=== PATIENT | male | born 1975 | race Caucasian/White ===

== ENCOUNTER 2016-12-19 02:52 | Emergency (ER) | payer MEDICAID ==
[2016-12-19] MEDS ORDERED: ASPIRIN 325 MG TABLET PO ONE (02:57)
--- NOTE | 2016-12-19 03:03 | Emergency Department Record ---
History of Present Illness - General Chief Complaint: Chest Pain Stated Complaint: CHEST PAIN Time Seen by Provider: 12/19/16 02:57 Source: Patient Mode of Arrival: Ambulatory Limitations: No limitations - History of Present Illness Initial Comments: 41 yo male presents with chest pain that is coming and going. It started yesterday morning around 9am. The pain comes and goes. It returned about 2 hours ago and did not stop. He has a history of recurrent chest pain in the past. He has had a treadmill stress test in August that was negative. He does not have any known history of CAD. He has a known RBBB for several years. The discomfort started tonight at rest. It is not with exertion. PCP is the [facility]. He has been evaluated by [facility] in the past. The patient reports he has had 3 other stress tests in the past. They have all been negative. The pain is a prickly needle like feeling in the mid lower chest. It does not radiate to the back. No shortness of breath. No sweating. No nausea. MD Complaint: Chest pain -: Days(s) (1) Pain Location: Substernal Pain Radiation: None Severity: Moderate Quality: Aching, Tightness Consistency: Intermittent Improves With: Nothing Worsens With: Nothing Treatments Prior to Arrival: None - Related Data Allergies Allergy/AdvReac Type Severity Reaction Status Date / Time diazepam [From Valium] Allergy Severe DIFFICULTY Unverified 10/31/16 10:34 BREATHING Review of Systems Constitutional: Denies: Chills, Fever, Malaise, Weakness Eyes: Denies: Eye discharge ENT: Denies: Congestion, Throat pain Respiratory: Denies: Cough, Dyspnea, Hemoptysis, Stridor, Wheezes Cardiovascular: Reports: Chest pain. Denies: Arrhythmia, Palpitations, Syncope Endocrine: Denies: Fatigue, Polydipsia, Polyuria Gastrointestinal: Reports: Abdominal pain (epigastric occasionally). Denies: Nausea, Vomiting Genitourinary: Denies: Dysuria, Frequency, Hematuria Musculoskeletal: Denies: Arthralgia, Back pain, Joint swelling Skin: Denies: Bruising, Change in color, Rash Neurological: Denies: Headache Psychiatric: Denies: Anxiety Hematological/Lymphatic: Denies: Blood Clots, Easy bleeding, Easy bruising, Swollen glands Past Medical History - SOCIAL HISTORY Smoking Status: Current every day smoker Drug Use: None - RESPIRATORY Hx Respiratory Disorders: Yes Hx Bronchitis: Yes Comment:: seasonal allergies - CARDIOVASCULAR Hx Cardio Disorders: Yes Comment:: RBBB - NEURO Hx Neuro Disorders: No - GI Hx GI Disorders: Yes Hx Reflux: Yes - Hx Genitourinary Disorders: No - ENDOCRINE Hx Endocrine Disorders: No - MUSCULOSKELETAL Hx Musculoskeletal Disorders: Yes Hx Back Injury: Yes - PSYCH Hx Psych Problems: Yes Hx Anxiety: Yes Hx Depression: Yes - HEMATOLOGY/ONCOLOGY Hx Hematology/Oncology Disorders: No Family Medical History Hx Resp Disorders: Mother Physical Exam - General General Appearance: Alert, Oriented x3, Cooperative, No acute distress Limitations: No limitations - Head Head exam: Normal inspection - Eye Eye exam: Normal appearance. negative: Conjunctival injection, Scleral icterus - ENT ENT exam: Normal exam Ear exam: Normal external inspection Nasal Exam: Normal inspection Mouth exam: Normal external inspection - Neck Neck exam: Normal inspection, Full ROM. negative: Tenderness - Respiratory Respiratory exam: Normal lung sounds bilaterally. negative: Accessory muscle use, Chest wall tenderness, Decreased breath sounds, Prolonged expiratory, Respiratory distress, Rhonchi, Stridor, Wheezes - Cardiovascular Cardiovascular Exam: Regular rate, Normal rhythm, Normal heart sounds. negative : Diastolic murmur, Systolic murmur Peripheral Pulses: 2+: Radial (R), Radial (L) - GI/Abdominal GI/Abdominal exam: Soft. negative: Distended, Rebound, Rigid, Tenderness - Rectal Rectal exam: Deferred - exam: Deferred - Extremities Extremities exam: Normal inspection, Full ROM, Normal capillary refill. negative: Pedal edema, Tenderness - Back Back exam: Reports: Normal inspection, Full ROM. Denies: Muscle spasm, Rash noted, Tenderness - Neurological Neurological exam: Alert, Normal gait, Oriented X3, Reflexes normal. negative: Altered - Psychiatric Psychiatric exam: Normal affect, Normal mood. negative: Agitated, Anxious - Skin Skin exam: Dry, Intact, Normal color, Warm Course - Reevaluation(s) Reevaluation #1: EKG NSR. Rate 77, intervals RBBB, [place] normal, ST CW RBBB. No significant change to numerous prior EKG in 2015, 2014 The August 2016 stress test was reviewed and was normal. 12/19/16 03:11 Reevaluation #2: No acute changes of the CBC,CMP 12/19/16 03:32 Reevaluation #3: The troponin and CK is negative 12/19/16 03:40 Reevaluation #4: The case was signed out to Dr Sanabria for review of the second set of cardiac enzymes If negative the plan is to DC home given the atypical nature of the symptoms 12/19/16 07:00 Medical Decision Making - Lab Data Result diagrams: 12/19/16 03:00 12/19/16 03:00 Disposition Clinical Impression: Abdominal pain, Colic, biliary Chest pain Qualifiers: Chest pain type: unspecified Qualified Code(s): R07.9 - Chest pain, unspecified Disposition: Home, Self-Care Condition: (1) Good Instructions: Chest Pain (ED) Additional Instructions: Call your doctor today for close follow up of the ER visit and the symptoms Return if the pain returns Follow up your prior abnormal HIDA scan with your doctor as well [place] one tablespoon after meals and bedtime avoid greasy foods continue omeprazole Forms: Patient Portal Access
[2016-12-19 03:11] LABS: BASO % 0.1 % (0-6); EOS % 1.6 % (0-6); HEMATOCRIT 47.4 % (42.0-52.0); HEMOGLOBIN 16.5 gm/dl (14.0-18.0); LYMPH % 18.9 % (16-45); MEAN CELL VOLUME 89.8 fl (81-97); MEAN CORPUSCULAR HEMOGLOBIN 31.3 pg (27-33); MEAN CORPUSCULAR HGB CONC 34.8 g/dl (32-36); MEAN PLATELET VOLUME 9.9 fl (7.4-10.4); MONO % 6.4 % (0-9); PLATELET COUNT 339 K/uL (130-400); RED BLOOD COUNT 5.28 M/uL (4.40-5.70); RED CELL DISTRIBUTION WIDTH 13.3 % (11.5-14.5); WHITE BLOOD COUNT W/O DIFF 10.1 K/uL (4.2-12.2)
[2016-12-19 03:22] LABS: ALB/GLOB RATIO 1.4 (1.1-1.8); ALBUMIN 4.3 gm/dL (3.5-5.0); ALKALINE PHOSPHATASE 78 U/L (38-126); ALT/SGPT 56 U/L (21-72); ANION GAP 10.6 (7-16); AST/SGOT 23 U/L (17-59); BILIRUBIN,TOTAL 0.58 mg/dL (0.2-1.3); BLOOD UREA NITROGEN 16 mg/dL (9-20); CARBON DIOXIDE 27.4 mmol/L (22-30); CREATINE PHOSPHOKINASE 103 U/L (55-170); CREATININE 0.7 mg/dL (0.66-1.25); EST GLOMERULAR FILTRATION RATE > 60 ml/min; GLUCOSE,RANDOM 98 mg/dL (70-110); TOTAL PROTEIN 7.4 gm/dL (6.3-8.2)
[2016-12-19 03:23] LABS: INR 0.88
[2016-12-19 03:33] LABS: CKMB 0.6 ug/L (0-6)
[2016-12-19 03:34] LABS: TROPONIN I < 0.012 ng/mL (0.00-0.034)
[2016-12-19] MEDS ORDERED: KETOROLAC 30 MG/ML VIAL IVP ONE (05:19)
[2016-12-19] MEDS ORDERED: AZITHROMYCIN 500 MG TABLET PO ONE (05:22)
--- NOTE | 2016-12-19 07:22 | Emergency Department Record ---
History of Present Illness - General Chief Complaint: Chest Pain Stated Complaint: CHEST PAIN Time Seen by Provider: 12/19/16 02:57 Source: Patient Mode of Arrival: Ambulatory Limitations: No limitations - History of Present Illness Initial Comments: reviewed Dr. Villagomez chart and evaluated the patient. patient described the pain as sharp and poking him and this started 24 hours ago and it comes and goes and he used tylenol. currently taking prednisone and levaquin for a sinus infection and his sinuses are getting better. Patient has diarrhea yesterday times two. patient just finished prednisone yesterday Onset/Timin -: Days(s) (1) Onset: During rest Pain Location: Substernal Pain Radiation: None Severity: Moderate Severity scale (1-10): 3 Quality: Aching, Tightness Consistency: Intermittent Improves With: Nothing Worsens With: Nothing Context: Other Other Symptoms: Burping, Cough Treatments Prior to Arrival: None - Related Data Allergies Allergy/AdvReac Type Severity Reaction Status Date / Time diazepam [From Valium] Allergy Severe DIFFICULTY Unverified 10/31/16 10:34 BREATHING Travel Screening - Travel/Exposure Within Last 30 Days Have you traveled within the last 30 days?: No - Travel/Exposure Within Last Year Have you traveled outside the [place] in the last year?: No - Additonal Travel Details Have you been exposed to anyone with a communicable illness?: No - Travel Symptoms Symptom Screening: None Review of Systems Constitutional: Denies: Chills, Fever, Malaise, Weakness Eyes: Denies: Eye discharge ENT: Denies: Congestion, Throat pain Respiratory: Denies: Cough, Dyspnea, Hemoptysis, Stridor, Wheezes Cardiovascular: Reports: Chest pain. Denies: Arrhythmia, Palpitations, Syncope Endocrine: Denies: Fatigue, Polydipsia, Polyuria Gastrointestinal: Reports: Abdominal pain (epigastric occasionally), Diarrhea. Denies: Nausea, Vomiting Genitourinary: Denies: Dysuria, Frequency, Hematuria Musculoskeletal: Denies: Arthralgia, Back pain, Joint swelling Skin: Denies: Bruising, Change in color, Rash Neurological: Denies: Headache Psychiatric: Denies: Anxiety Hematological/Lymphatic: Denies: Blood Clots, Easy bleeding, Easy bruising, Swollen glands Past Medical History - SOCIAL HISTORY Smoking Status: Current every day smoker Drug Use: None - RESPIRATORY Hx Respiratory Disorders: Yes Hx Bronchitis: Yes Comment:: seasonal allergies - CARDIOVASCULAR Hx Cardio Disorders: Yes Comment:: RBBB - NEURO Hx Neuro Disorders: No - GI Hx GI Disorders: Yes Hx Reflux: Yes - Hx Genitourinary Disorders: No - ENDOCRINE Hx Endocrine Disorders: No - MUSCULOSKELETAL Hx Musculoskeletal Disorders: Yes Hx Back Injury: Yes - PSYCH Hx Psych Problems: Yes Hx Anxiety: Yes Hx Depression: Yes - HEMATOLOGY/ONCOLOGY Hx Hematology/Oncology Disorders: No Family Medical History Hx Resp Disorders: Mother Physical Exam - General General Appearance: Alert, Oriented x3, Cooperative, No acute distress Limitations: No limitations - Head Head exam: Normal inspection - Eye Eye exam: Normal appearance, PERRL Pupils: Normal accommodation - ENT ENT exam: Normal exam, Mucous membranes moist, Normal external ear exam, Normal orophraynx, TM's normal bilaterally Ear exam: Normal external inspection. negative: External canal tenderness Nasal Exam: Normal inspection. negative: Discharge, Sinus tenderness Mouth exam: Normal external inspection, Tongue normal Teeth exam: Normal inspection. negative: Dental caries Throat exam: Normal inspection. negative: Tonsillar erythema, Tonsillar exudate - Neck Neck exam: Normal inspection, Full ROM. negative: Tenderness - Respiratory Respiratory exam: Normal lung sounds bilaterally. negative: Respiratory distress - Cardiovascular Cardiovascular Exam: Regular rate, Normal rhythm, Normal heart sounds - GI/Abdominal GI/Abdominal exam: Soft, Normal bowel sounds, Tenderness (epigastric pain) - Rectal Rectal exam: Deferred - exam: Deferred - Extremities Extremities exam: Normal inspection, Full ROM, Normal capillary refill. negative: Tenderness - Back Back exam: Reports: Normal inspection, Full ROM. Denies: Muscle spasm, Rash noted, Tenderness - Neurological Neurological exam: Alert, Normal gait, Oriented X3, Reflexes normal - Psychiatric Psychiatric exam: Normal affect, Normal mood - Skin Skin exam: Dry, Intact, Normal color, Warm Course Vital Signs 12/19/16 12/19/16 12/19/16 02:53 03:32 05:20 Temperature 99.0 F Pulse Rate 76 Pulse Rate [ 71 68 [employer] ] Respiratory 20 20 20 Rate Blood Pressure 165/108 Blood Pressure 144/105 136/101 [Left Arm] Pulse Ox 98 98 96 Medical Decision Making - Lab Data Result diagrams: 12/19/16 03:00 12/19/16 03:00 Lab Results 12/19/16 12/19/16 12/19/16 Range/Units 03:00 03:00 03:00 WBC 10.1 (4.2-12.2) K/uL RBC 5.28 (4.40-5.70) M/uL Hgb 16.5 (14.0-18.0) gm/dl Hct 47.4 (42.0-52.0) % MCV 89.8 (81-97) fl MCH 31.3 (27-33) pg MCHC 34.8 (32-36) g/dl RDW 13.3 (11.5-14.5) % Plt Count 339 (130-400) K/uL MPV 9.9 (7.4-10.4) fl Gran % 73.0 (47-80) % Lymphocytes % 18.9 (16-45) % Monocytes % 6.4 (0-9) % Eosinophils % 1.6 (0-6) % Basophils % 0.1 (0-6) % PT 10.0 (9.5-12.1) SECONDS INR 0.88 PTT 24.00 L (24.5-39.1) SECONDS Sodium 138 (136-145) mmol/L Potassium 4.0 (3.5-5.1) mmol/L Chloride 100 (98-107) mmol/L Carbon Dioxide 27.4 (22-30) mmol/L Anion Gap 10.6 (7-16) BUN 16 (9-20) mg/dL Creatinine 0.7 (0.66-1.25) mg/dL Estimated GFR > 60 ml/min Random Glucose 98 (70-110) mg/dL Calcium 8.9 (8.5-10.1) mg/dL Total Bilirubin 0.58 (0.2-1.3) mg/dL AST 23 (17-59) U/L ALT 56 (21-72) U/L Alkaline Phosphatase 78 (38-126) U/L Creatine Kinase 103 (55-170) U/L CK-MB (CK-2) 0.6 (0-6) ug/L Troponin I < 0.012 (0.00-0.034) ng/mL Total Protein 7.4 (6.3-8.2) gm/dL Albumin 4.3 (3.5-5.0) gm/dL Globulin 3.1 (1.4-4.8) gm/dL Albumin/Globulin Ratio 1.4 (1.1-1.8) Disposition Clinical Impression: Colic, biliary Chest pain Qualifiers: Chest pain type: unspecified Qualified Code(s): R07.9 - Chest pain, unspecified Abdominal pain Qualifiers: Abdominal location: epigastric Qualified Code(s): R10.13 - Epigastric pain Disposition: Home, Self-Care Condition: (1) Good Instructions: Chest Pain (ED) Additional Instructions: Call your doctor today for close follow up of the ER visit and the symptoms Return if the pain returns Follow up your prior abnormal HIDA scan with your doctor as well [place] one tablespoon after meals and bedtime avoid greasy foods continue omeprazole Forms: Patient Portal Access Time of Disposition: 07:40
[2016-12-19 07:23] LABS: CKMB 0.5 ug/L (0-6); TROPONIN I < 0.012 ng/mL (0.00-0.034)
[2016-12-19] MEDS ORDERED: HYOSCY PO ONE ×2 (07:34)
[2016-12-19] MEDS ORDERED: [UNRECOGNIZED DRUG - OTHER] PO ONE ×2 (07:34)
[2016-12-19] MEDS ORDERED: MAGNESIUM HYDROXIDE PO ONE ×2 (07:34)
[2016-12-19] MEDS ORDERED: ATROPINE PO ONE ×2 (07:34)
[2016-12-19] MEDS ORDERED: SCOP PO ONE ×2 (07:34)
== END 2016-12-19 07:51 | disposition home or self-care (01) ==
LOC: ER 02:52
DX: K80.50 Calculus of bile duct without cholangitis or cholecystitis without obstruction (principal); R07.2 Precordial pain; R10.13 Epigastric pain; R19.7 Diarrhea, unspecified; R05 Cough; F17.210 Nicotine dependence, cigarettes, uncomplicated
CPT/HCPCS: 99284 ×2; 96374; 82550; 85025; 85730; 85610; 82553; 84484; 80053; 71020; 93005; 93010; J1885; J3490

== ENCOUNTER 2017-01-29 05:36 | Emergency (ER) | payer MEDICAID ==
--- NOTE | 2017-01-29 05:54 | Emergency Department Record ---
History of Present Illness - General Chief Complaint: Back Pain/Injury Stated Complaint: BACK/NECK PAIN Time Seen by Provider: 01/29/17 05:51 Source: Patient Mode of Arrival: Ambulatory Limitations: No limitations - History of Present Illness Initial Comments: 41 yo male presents to ED with a CC of worsening chronic neck and back pain symptoms for the past several weeks. Patient reports that he was unable to sleep due to his pain symptoms. Patient has been in PT for his symptoms, reports that Flexeril and Naprosyn have helped with his pain symptoms previously. Patient denies new injury, denies fevers, chills, or extremity weakness on examination. MD Complaint: Back pain Onset/Timin -: Days(s) Similar Symptoms Previously: Yes Place: Home Radiation: None Severity scale (1-10): 8 Quality: Aching Consistency: Constant Improves With: None Worsens With: Movement, Sitting upright, Walking Context: Other Associated Symptoms: Denies other symptoms Treatments Prior to Arrival: Acetaminophen - Related Data Previous Rx's Medication Instructions Recorded Cyclobenzaprine HCl [Flexeril] 10 mg PO TID #10 tablet 01/29/17 Naproxen 500 mg PO Q12H PRN #30 tablet 01/29/17 Allergies Allergy/AdvReac Type Severity Reaction Status Date / Time diazepam [From Valium] Allergy Severe DIFFICULTY Verified 01/29/17 05:51 BREATHING Travel Screening - Travel/Exposure Within Last 30 Days Have you traveled within the last 30 days?: No - Travel/Exposure Within Last Year Have you traveled outside the [place] in the last year?: No - Additonal Travel Details Have you been exposed to anyone with a communicable illness?: No - Travel Symptoms Symptom Screening: None Review of Systems Constitutional: Denies: Chills, Fever, Malaise, Night sweats Eyes: Denies: Eye discharge, Eye pain ENT: Denies: Congestion, Ear pain, Epistaxis Respiratory: Denies: Cough, Dyspnea Cardiovascular: Denies: Chest pain, Dyspnea on exertion Endocrine: Denies: Fatigue, Heat or cold intolerance Gastrointestinal: Denies: Abdominal pain, Nausea, Vomiting Genitourinary: Denies: Incontinence, Retention Musculoskeletal: Reports: Back pain, Neck pain. Denies: Arthralgia, Gout, Joint swelling Skin: Denies: Bruising, Change in color, Change in hair/nails, Rash Neurological: Denies: Abnormal gait, Confusion, Headache, Seizure Psychiatric: Denies: Anxiety Hematological/Lymphatic: Denies: Anemia, Blood Clots Past Medical History - SOCIAL HISTORY Smoking Status: Former smoker Alcohol Use: Rare Drug Use: None - RESPIRATORY Hx Respiratory Disorders: Yes Hx Bronchitis: Yes Comment:: seasonal allergies - CARDIOVASCULAR Hx Cardio Disorders: Yes Comment:: RBBB - NEURO Hx Neuro Disorders: No - GI Hx GI Disorders: Yes Hx Reflux: Yes - Hx Genitourinary Disorders: No - ENDOCRINE Hx Endocrine Disorders: No - MUSCULOSKELETAL Hx Musculoskeletal Disorders: Yes Hx Back Injury: Yes - PSYCH Hx Psych Problems: Yes Hx Anxiety: Yes Hx Depression: Yes - HEMATOLOGY/ONCOLOGY Hx Hematology/Oncology Disorders: No Family Medical History Any Significant Family History?: No Family Hx Comment (NOT TO BE USED IN PLACE OF ITEMS BELOW): COPD WITH MOTHER AND 2 SISTERS Hx Resp Disorders: Mother Physical Exam - General General Appearance: Alert, Oriented x3, Cooperative, Mild distress Limitations: No limitations - Head Head exam: Atraumatic, Normocephalic, Normal inspection Head exam detail: negative: Abrasion, Contusion, Vieyra's sign, General tenderness, Hematoma, Laceration - Eye Eye exam: Normal appearance. negative: Conjunctival injection, Periorbital swelling, Periorbital tenderness, Scleral icterus - ENT Ear exam: negative: Auricular hematoma, Auricular trauma Nasal Exam: negative: Active bleeding, Discharge, Dried blood, Foreign body Mouth exam: negative: Drooling, Laceration, Muffled voice, Tongue elevation - Neck Neck exam: Normal inspection. negative: Meningismus, Tenderness - Respiratory Respiratory exam: Normal lung sounds bilaterally. negative: Rales, Respiratory distress, Rhonchi, Stridor - Cardiovascular Cardiovascular Exam: Regular rate, Normal rhythm, Normal heart sounds - GI/Abdominal GI/Abdominal exam: Soft. negative: Rebound, Rigid, Tenderness - Rectal Rectal exam: Deferred - exam: Deferred - Extremities Extremities exam: Normal inspection. negative: Calf tenderness, Pedal edema, Tenderness - Back Back exam: Reports: Paraspinal tenderness. 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 negative: Motor sensory deficit - Psychiatric Psychiatric exam: Normal affect, Normal mood - Skin Skin exam: Normal color. negative: Abrasion Type of lesion: negative: abrasion Course Vital Signs 01/29/17 05:40 Temperature 97.9 F Pulse Rate 68 Respiratory 18 Rate Blood Pressure 137/90 Pulse Ox 97 - Reevaluation(s) Reevaluation #1: 01/29/17 05:57 Patient denies new injury or trauma, no clinical evidence for acute spinal cord compression syndrome on examination. Patient appears stable for discharge on Flexeril and Naprosyn for his symptoms as these have helped previously. Patient appears stable for discharge at this time. Disposition Disposition: Discharge Clinical Impression: Chronic neck and back pain Disposition: Home, Self-Care Condition: (2) Stable Instructions: Osteoarthritis (ED) Additional Instructions: Return to ED if your symptoms worsen or if you have any concerns. Follow-up with your family doctor in 3-5 days as directed. Flexeril and Naprosyn as directed. Prescriptions: Cyclobenzaprine HCl [Flexeril] 10 mg PO TID #10 tablet Naproxen 500 mg PO Q12H PRN #30 tablet PRN Reason: Pain - Moderate (5-7) Forms: Patient Portal Access Time of Disposition: 05:52
[2017-01-29] MEDS ORDERED: NAPROXEN 250 MG TABLET PO ONE (05:59)
[2017-01-29] MEDS ORDERED: CYCLOBENZAPRINE 10MG TABLET PO ONE (05:59)
== END 2017-01-29 06:09 | disposition home or self-care (01) ==
LOC: ER 05:36
DX: M54.2 Cervicalgia (principal); M54.5 Low back pain; M54.6 Pain in thoracic spine
CPT/HCPCS: 99282

== ENCOUNTER 2017-04-03 22:26 | Emergency (ER) | payer MEDICAID ==
[2017-04-03] MEDS ORDERED: ASPIRIN 81 MG CHEWABLE TABLET PO ONE (22:54)
[2017-04-03] MEDS ORDERED: NITROGLYCERIN 0.4MG SL TABLET #25 BTL SL PRN (22:54)
[2017-04-03 23:18] LABS: BASO % 0.1 % (0-6); EOS % 2.8 % (0-6); GRAN % 63.3 % (47-80); HEMATOCRIT 46.4 % (42.0-52.0); HEMOGLOBIN 15.4 gm/dl (14.0-18.0); LYMPH % 25.8 % (16-45); MEAN CELL VOLUME 90.3 fl (81-97); MEAN CORPUSCULAR HGB CONC 33.2 g/dl (32-36); MEAN PLATELET VOLUME 10.2 fl (7.4-10.4); PLATELET COUNT 290 K/uL (130-400); RED BLOOD COUNT 5.14 M/uL (4.40-5.70); RED CELL DISTRIBUTION WIDTH 13.1 % (11.5-14.5); WHITE BLOOD COUNT W/O DIFF 7.2 K/uL (4.2-12.2)
--- NOTE | 2017-04-03 23:31 | Emergency Department Record ---
History of Present Illness - General Chief Complaint: Chest Pain Stated Complaint: CHEST PAIN Time Seen by Provider: 04/03/17 22:41 Source: Patient Mode of Arrival: Ambulatory Limitations: No limitations - History of Present Illness Initial Comments: pt started getting chest pain around 2129 that feels similar to previous panic attacks. pn is pressure like and goes into neck. no n or sob.pn is 5/10 Onset/Timin -: Hour(s) Onset: During exertion Pain Location: Substernal Pain Radiation: Neck Severity: Severe Severity scale (1-10): 10 Quality: Sharp Consistency: Intermittent Improves With: Leaning foward Worsens With: Inspiration, Movement Anginal Symptoms: Diaphoresis, Nausea Treatments Prior to Arrival: None - Related Data Allergies Allergy/AdvReac Type Severity Reaction Status Date / Time diazepam [From Valium] Allergy Severe DIFFICULTY Verified 01/29/17 05:51 BREATHING Travel Screening - Travel/Exposure Within Last 30 Days Have you traveled within the last 30 days?: No - Travel Symptoms Symptom Screening: Diarrhea Review of Systems Reviewed: No additional complaints except as noted below Constitutional: Reports: As per HPI. Denies: Chills, Fever, Malaise, Night sweats, Weakness, Weight change Eyes: Reports: As per HPI. Denies: Eye discharge, Eye pain, Photophobia, Vision change ENT: Reports: As per HPI. Denies: Congestion, Dental pain, Ear pain, Epistaxis , Hearing loss, Throat pain Respiratory: Reports: As per HPI. Denies: Cough, Dyspnea, Hemoptysis, Stridor, Wheezes Cardiovascular: Reports: As per HPI. Denies: Arrhythmia, Chest pain, Dyspnea on exertion, Edema, Murmurs, Orthopnea, Palpitations, Paroxysmal nocturnal dyspnea, Rheumatic Fever, Syncope Endocrine: Reports: As per HPI. Denies: Fatigue, Heat or cold intolerance, Polydipsia, Polyuria Gastrointestinal: Reports: As per HPI. Denies: Abdominal pain, Constipation, Diarrhea, Hematemesis, Hematochezia, Melena, Nausea, Vomiting Genitourinary: Reports: As per HPI. Denies: Dysuria, Frequency, Hematuria, Incontinence, Retention, Testicular pain, Testicular mass, Urgency Musculoskeletal: Reports: As per HPI. Denies: Arthralgia, Back pain, Gout, Joint swelling, Myalgia, Neck pain Skin: Reports: As per HPI. Denies: Bruising, Change in color, Change in hair/ nails, Lesions, Pruritus, Rash Neurological: Reports: As per HPI. Denies: Abnormal gait, Confusion, Headache, Numbness, Paresthesias, Seizure, Tingling, Tremors, Vertigo, Weakness Psychiatric: Reports: As per HPI. Denies: Anxiety, Auditory hallucinations, Depression, Homicidal thoughts, Suicidal thoughts, Visual hallucinations Hematological/Lymphatic: Reports: As per HPI. Denies: Anemia, Blood Clots, Easy bleeding, Easy bruising, Swollen glands Past Medical History - SOCIAL HISTORY Smoking Status: Former smoker Alcohol Use: Occassional Drug Use: None - RESPIRATORY Hx Respiratory Disorders: Yes Hx Bronchitis: Yes Comment:: seasonal allergies - CARDIOVASCULAR Hx Cardio Disorders: Yes Hx Chest Pain: Yes Hx Palpitations: Yes Comment:: RBBB - NEURO Hx Neuro Disorders: No - GI Hx GI Disorders: Yes Hx Reflux: Yes Comment:: "gall bladder functional 7%" - Hx Genitourinary Disorders: No - ENDOCRINE Hx Endocrine Disorders: No - MUSCULOSKELETAL Hx Musculoskeletal Disorders: Yes Hx Back Injury: Yes - PSYCH Hx Psych Problems: Yes Hx Anxiety: Yes Hx Depression: Yes - HEMATOLOGY/ONCOLOGY Hx Hematology/Oncology Disorders: No Family Medical History Any Significant Family History?: Yes Family Hx Comment (NOT TO BE USED IN PLACE OF ITEMS BELOW): COPD WITH MOTHER AND 2 SISTERS Hx Resp Disorders: Mother Physical Exam - General General Appearance: Alert, Oriented x3, Cooperative, Mild distress - Head Head exam: Normal inspection - Eye Eye exam: Normal appearance, PERRL, EOMI Pupils: Normal accommodation - ENT ENT exam: Normal exam, Mucous membranes moist, Normal external ear exam, Normal orophraynx Ear exam: Normal external inspection. negative: External canal tenderness Nasal Exam: Normal inspection. negative: Discharge, Sinus tenderness Mouth exam: Normal external inspection, Tongue normal Teeth exam: Normal inspection. negative: Dental caries Throat exam: Normal inspection. negative: Tonsillar erythema, Tonsillar exudate - Neck Neck exam: Normal inspection, Full ROM. negative: Tenderness - Respiratory Respiratory exam: Normal lung sounds bilaterally. negative: Respiratory distress - Cardiovascular Cardiovascular Exam: Regular rate, Normal rhythm, Normal heart sounds - GI/Abdominal GI/Abdominal exam: Soft, Normal bowel sounds. negative: Tenderness - Rectal Rectal exam: Deferred - exam: Deferred - Extremities Extremities exam: Normal inspection, Full ROM, Normal capillary refill. negative: Tenderness - Back Back exam: Reports: Normal inspection, Full ROM. Denies: Muscle spasm, Rash noted, Tenderness - Neurological Neurological exam: Alert, CN II-XII intact, Normal gait, Oriented X3 - Psychiatric Psychiatric exam: Normal affect, Normal mood - Skin Skin exam: Dry, Intact, Normal color, Warm Course Vital Signs 04/03/17 04/03/17 04/03/17 22:38 22:52 23:00 Pulse Rate 77 Pulse Rate [ 73 77 Pulse Ox Probe] Respiratory 18 24 15 Rate Blood Pressure 151/94 Blood Pressure 147/98 158/106 [Left Arm] Pulse Ox 100 97 97 04/03/17 23:16 Pulse Rate Pulse Rate [ 110 H Pulse Ox Probe] Respiratory 24 Rate Blood Pressure Blood Pressure 128/97 [Left Arm] Pulse Ox 95 - Reevaluation(s) Reevaluation #1: 04/03/17 23:30 pn is down to 1/10 after 1 ntg Medical Decision Making - Lab Data Result diagrams: 04/03/17 23:05 04/03/17 23:05 Lab Results 04/03/17 Range/Units 23:05 WBC 7.2 (4.2-12.2) K/uL RBC 5.14 (4.40-5.70) M/uL Hgb 15.4 (14.0-18.0) gm/dl Hct 46.4 (42.0-52.0) % MCV 90.3 (81-97) fl MCH 30.0 (27-33) pg MCHC 33.2 (32-36) g/dl RDW 13.1 (11.5-14.5) % Plt Count 290 (130-400) K/uL MPV 10.2 (7.4-10.4) fl Gran % 63.3 (47-80) % Lymphocytes % 25.8 (16-45) % Monocytes % 8.0 (0-9) % Eosinophils % 2.8 (0-6) % Basophils % 0.1 (0-6) % Disposition Disposition: Discharge Clinical Impression: Chest pain Qualifiers: Chest pain type: unspecified Qualified Code(s): R07.9 - Chest pain, unspecified Disposition: Home, Self-Care Condition: (1) Good Instructions: Chest Pain (ED) Additional Instructions: follow up withcardiologist and family doctor today without fail. return sooner if worse. take aspirin 81mg a day Forms: Patient Portal Access
[2017-04-03 23:49] LABS: ALB/GLOB RATIO 1.3 (1.1-1.8); ALBUMIN 3.9 gm/dL (3.5-5.0); ALKALINE PHOSPHATASE 84 U/L (38-126); ALT/SGPT 46 U/L (21-72); ANION GAP 9.2 (7-16); AST/SGOT 30 U/L (17-59); BILIRUBIN,TOTAL 0.61 mg/dL (0.2-1.3); BLOOD UREA NITROGEN 16 mg/dL (9-20); CARBON DIOXIDE 20.8 mmol/L (22-30); CREATINE PHOSPHOKINASE 46 U/L (55-170); CREATININE 0.8 mg/dL (0.66-1.25); EST GLOMERULAR FILTRATION RATE > 60 ml/min; GLUCOSE,RANDOM 117 mg/dL (70-110)
[2017-04-04 00:01] LABS: CKMB 0.6 ug/L (0-6)
[2017-04-04 00:02] LABS: TROPONIN I < 0.012 ng/mL (0.00-0.034)
[2017-04-04] MEDS ORDERED: POTASSIUM CHLORIDE 20 MEQ TABLET PO ONE (01:29)
--- NOTE | 2017-04-06 08:09 | RADIOLOGY REPORT ---
EXAM: CHEST 2 VIEWS HISTORY: DIFFICULTY BREATHING. TECHNIQUE: Frontal and lateral views of the chest. COMPARISON: Prior chest from 12/19/16. FINDINGS: Heart size is normal. Lungs are clear. No pneumothorax. IMPRESSION: NEGATIVE CHEST. JOB NUMBER: [id number] MTDD
== END 2017-04-04 03:37 | disposition home or self-care (01) ==
LOC: ER 22:26
DX: R07.9 Chest pain, unspecified (principal)
CPT/HCPCS: 71020; 80053; 82550; 82553; 84484; 85025; 85379; 93005; 93010; 93041; 94760; 99283

== ENCOUNTER 2017-05-18 03:34 | Emergency (ER) | payer SELFPAY ==
[2017-05-18] MEDS ORDERED: LORAZEPAM 2 MG/ML VIAL IV ONE (03:57)
[2017-05-18] MEDS ORDERED: ASPIRIN 81 MG CHEWABLE TABLET PO ONE (03:57)
--- NOTE | 2017-05-18 04:02 | Emergency Department Record ---
History of Present Illness - General Chief Complaint: General Stated Complaint: feels like heart is beating hard Time Seen by Provider: 05/18/17 03:37 Source: Patient Mode of Arrival: Ambulatory Limitations: No limitations - History of Present Illness Initial comments: 41 yo male presents to ED for evaluation of his blood pressure, reports that he can hear his heart "pulsing in my ears". Patient also describes a "tightness to the throat" associated with symptoms. Patient denies chest pain or difficulty breathing. Patient does report a history of panic attacks previously that feel different from this morning's symptoms. Patient denies fevers, chills, or recent illness. Quality: Other (tightness) Consistency: Constant Improves with: None Worsens with: None Associated Symptoms: Denies other symptoms - Gunjan Coma Scale Eye Response: (4) Open spontaneously Motor Response: (6) Obeys commands Verbal Response: (5) Oriented [place] Total: 15 - Related Data Allergies Allergy/AdvReac Type Severity Reaction Status Date / Time diazepam [From Valium] Allergy Severe DIFFICULTY Verified 05/18/17 03:41 BREATHING Travel Screening - Travel/Exposure Within Last 30 Days Have you traveled within the last 30 days?: No - Travel/Exposure Within Last Year Have you traveled outside the [place] in the last year?: No - Additonal Travel Details Have you been exposed to anyone with a communicable illness?: No - Travel Symptoms Symptom Screening: None Review of Systems Constitutional: Denies: Chills, Fever, Malaise Eyes: Denies: Eye discharge, Eye pain ENT: Denies: Congestion, Ear pain, Epistaxis Respiratory: Denies: Cough, Dyspnea Cardiovascular: Denies: Chest pain, Dyspnea on exertion Endocrine: Denies: Fatigue, Heat or cold intolerance Gastrointestinal: Reports: Abdominal pain ("from my chronic gallbladder problem "). Denies: Nausea, Vomiting Genitourinary: Denies: Incontinence, Retention Musculoskeletal: Denies: Arthralgia, Back pain, Gout, Joint swelling Skin: Denies: Bruising, Change in color Neurological: Denies: Abnormal gait, Confusion, Headache Psychiatric: Reports: Anxiety Hematological/Lymphatic: Denies: Anemia, Blood Clots Past Medical History - SOCIAL HISTORY Smoking Status: Former smoker Alcohol Use: Occasional Drug Use: None - RESPIRATORY Hx Respiratory Disorders: Yes Hx Bronchitis: Yes Comment:: seasonal allergies - CARDIOVASCULAR Hx Cardio Disorders: Yes Hx Chest Pain: Yes Hx Palpitations: Yes Comment:: RBBB - NEURO Hx Neuro Disorders: No - GI Hx GI Disorders: Yes Hx Reflux: Yes Comment:: "gall bladder functional 7%" - Hx Genitourinary Disorders: No - ENDOCRINE Hx Endocrine Disorders: No - MUSCULOSKELETAL Hx Musculoskeletal Disorders: Yes Hx Back Injury: Yes - PSYCH Hx Psych Problems: Yes Hx Anxiety: Yes Hx Depression: Yes - HEMATOLOGY/ONCOLOGY Hx Hematology/Oncology Disorders: No Family Medical History Any Significant Family History?: Yes Family Hx Comment (NOT TO BE USED IN PLACE OF ITEMS BELOW): COPD WITH MOTHER AND 2 SISTERS Hx Resp Disorders: Mother Physical Exam - General General Appearance: Alert, Oriented x3, Cooperative, Anxious Limitations: No limitations - Head Head exam: Atraumatic, Normocephalic, Normal inspection Head exam detail: negative: Abrasion, Contusion, Vieyra's sign, General tenderness, Hematoma, Laceration - Eye Eye exam: Normal appearance. negative: Conjunctival injection, Periorbital swelling, Periorbital tenderness, Scleral icterus - ENT Ear exam: negative: Auricular hematoma, Auricular trauma Nasal Exam: negative: Active bleeding, Discharge, Dried blood, Foreign body Mouth exam: negative: Drooling, Laceration, Muffled voice, Tongue elevation - Neck Neck exam: Normal inspection. negative: Meningismus, Tenderness - Respiratory Respiratory exam: Normal lung sounds bilaterally. negative: Respiratory distress, Rhonchi, Stridor, Wheezes - Cardiovascular Cardiovascular Exam: Regular rate, Normal rhythm, Normal heart sounds - GI/Abdominal GI/Abdominal exam: Soft. negative: Rebound, Rigid, Tenderness - Rectal Rectal exam: Deferred - exam: Deferred - Extremities Extremities exam: Normal inspection. negative: Calf tenderness, Pedal edema, Tenderness - Back Back exam: Denies: CVA tenderness (R), CVA tenderness (L) - Neurological Neurological exam: Alert, Normal gait, Oriented X3 - Psychiatric Psychiatric exam: Anxious - Skin Skin exam: Normal color. negative: Abrasion Type of lesion: negative: abrasion Course Vital Signs 05/18/17 03:40 Temperature 98.6 F Pulse Rate 71 Respiratory 22 Rate Blood Pressure 152/110 - Reevaluation(s) Reevaluation #1: 05/18/17 04:01 EKG: NSR 66 RBBB, RAD No acute ST-T wave changes are present No changes from 04/03/17. Reevaluation #2: 05/18/17 04:11 EST 09/25/16: Normal exercise stress test with achievement of 9 mets Hypertensive response to exercise Reevaluation #3: 05/18/17 05:51 Labs reviewed and are grossly unremarkable for an acute process. Will continue to observe pending repeat Troponin. Reevaluation #4: 05/18/17 06:52 Case was discussed with oncoming provider, will assume care pending repeat Troponin at 8:05. Medical Decision Making - Lab Data Result diagrams: 05/18/17 04:05 05/18/17 04:05 Disposition Disposition: Discharge Clinical Impression: Atypical chest pain Disposition: Home, Self-Care Condition: (2) Stable Instructions: Generalized Anxiety Disorder (ED) Additional Instructions: Return to ED if your symptoms worsen or if you have any concerns. Follow-up with your family doctor in 3-5 days as directed. Forms: Patient Portal Access Time of Disposition: 06:54 Quality - Quality Measures Quality Measures: N/A - Blood Pressure Screening Blood Pressure Classification: Hypertensive Reading Systolic Measurement: 152 Diastolic Measurement: 110 Screening for High Blood Pressure: < Second Hypertensive BP, F/U Documented > [ G8950] Second Hypertensive Follow-up Interventions: Referral to alternative/primary care provider.
[2017-05-18 04:24] LABS: EOS % 0.1 % (0-6); HEMATOCRIT 47.9 % (42.0-52.0); HEMOGLOBIN 16.8 gm/dl (14.0-18.0); LYMPH % 10.6 % (16-45); MEAN CELL VOLUME 87.7 fl (81-97); MEAN CORPUSCULAR HEMOGLOBIN 30.8 pg (27-33); MEAN CORPUSCULAR HGB CONC 35.1 g/dl (32-36); MEAN PLATELET VOLUME 10.3 fl (7.4-10.4); MONO % 1.8 % (0-9); PLATELET COUNT 314 K/uL (130-400); RED BLOOD COUNT 5.46 M/uL (4.40-5.70); RED CELL DISTRIBUTION WIDTH 12.7 % (11.5-14.5); WHITE BLOOD COUNT W/O DIFF 8.5 K/uL (4.2-12.2)
[2017-05-18 04:28] LABS: ALB/GLOB RATIO 1.4 (1.1-1.8); ALBUMIN 4.5 gm/dL (3.5-5.0); ALKALINE PHOSPHATASE 78 U/L (38-126); ALT/SGPT 62 U/L (21-72); AST/SGOT 24 U/L (17-59); BILIRUBIN,TOTAL 1.22 mg/dL (0.2-1.3); BLOOD UREA NITROGEN 14 mg/dL (9-20); CREATINE PHOSPHOKINASE 34 U/L (55-170); CREATININE 0.8 mg/dL (0.66-1.25); EST GLOMERULAR FILTRATION RATE > 60 ml/min; GLUCOSE,RANDOM 138 mg/dL (70-110); TOTAL PROTEIN 7.7 gm/dL (6.3-8.2)
[2017-05-18 04:40] LABS: CKMB 0.5 ug/L (0-6); TROPONIN I < 0.012 ng/mL (0.00-0.034)
== END 2017-05-18 08:56 | disposition home or self-care (01) ==
LOC: ER 03:34
DX: R07.89 Other chest pain (principal); R03.0 Elevated blood-pressure reading, without diagnosis of hypertension; Z87.891 Personal history of nicotine dependence
CPT/HCPCS: 99284 ×2; 96374; 82550; 82553; 84484; 80053; 85027; 93005; 93010; J2060

== ENCOUNTER 2017-05-29 01:30 | Emergency (ER) | payer MEDICAID ==
--- NOTE | 2017-05-29 01:48 | Emergency Department Record ---
History of Present Illness - General Chief complaint: Pain Stated complaint: RIB PAIN Time Seen by Provider: 05/29/17 01:41 Source: Patient Mode of Arrival: Ambulatory Limitations: No limitations - History of Present Illness Initial comments: The patient is here due to R lower chest and upper abdominal pain for about 16 hours. The pain is sharp and stabbing at times and increases with deep breaths. The patient denies any L sided CP, SOB, or LV and denies any nausea, vomiting or diarrhea. The patient states he has a long hx of gallbladder issues similar to this and may need to have his gallbladder out in the future. The pain is worse with bending and twisting to the L per the patient. MD Complaint: Abdominal Pain Onset/Timin -: Hour(s) Location: Right Radiation: None Severity scale (1-10): 6 Quality: Sharp Consistency: Constant Improves with: Nothing Worsens with: Nothing Associated Symptoms: Denies other symptoms - Related Data Previous Rx's Medication Instructions Recorded Naproxen [Naprosyn] 500 mg PO BID #14 tablet. 05/29/17 Allergies Allergy/AdvReac Type Severity Reaction Status Date / Time diazepam [From Valium] Allergy Severe DIFFICULTY Verified 05/18/17 03:41 BREATHING Travel Screening - Travel/Exposure Within Last 30 Days Have you traveled within the last 30 days?: No - Travel/Exposure Within Last Year Have you traveled outside the [place] in the last year?: No - Additonal Travel Details Have you been exposed to anyone with a communicable illness?: No - Travel Symptoms Symptom Screening: None Review of Systems Constitutional: Denies: Chills, Fever Eyes: Denies: Eye discharge ENT: Denies: Congestion Respiratory: Denies: Cough, Dyspnea Past Medical History - SOCIAL HISTORY Smoking Status: Former smoker Alcohol Use: Occasional Drug Use: None - RESPIRATORY Hx Respiratory Disorders: Yes Hx Bronchitis: Yes Comment:: seasonal allergies - CARDIOVASCULAR Hx Cardio Disorders: Yes Hx Chest Pain: Yes Hx Palpitations: Yes Comment:: RBBB - NEURO Hx Neuro Disorders: No - GI Hx GI Disorders: Yes Hx Reflux: Yes Comment:: "gall bladder functional 7%" - Hx Genitourinary Disorders: No - ENDOCRINE Hx Endocrine Disorders: No - MUSCULOSKELETAL Hx Musculoskeletal Disorders: Yes Hx Back Injury: Yes - PSYCH Hx Psych Problems: Yes Hx Anxiety: Yes Hx Depression: Yes - HEMATOLOGY/ONCOLOGY Hx Hematology/Oncology Disorders: No Family Medical History Any Significant Family History?: Yes Family Hx Comment (NOT TO BE USED IN PLACE OF ITEMS BELOW): COPD WITH MOTHER AND 2 SISTERS Hx Resp Disorders: Mother Physical Exam - General General Appearance: Alert, Oriented x3, Cooperative, No acute distress - Head Head exam: Atraumatic, Normocephalic, Normal inspection - Eye Eye exam: Normal appearance, PERRL - Neck Neck exam: Normal inspection, Full ROM. negative: Tenderness - Respiratory Respiratory exam: Normal lung sounds bilaterally, Chest wall tenderness (There is mild R lower lateral chest wall tenderness. The pain is 100% reproduced with chest twisting to the L. ). negative: Respiratory distress - Cardiovascular Cardiovascular Exam: Regular rate, Normal rhythm, Normal heart sounds - GI/Abdominal GI/Abdominal exam: Soft, Normal bowel sounds, Tenderness (There is very mild RUQ tenderness but no guarding or rebound. The abdomen is very soft.). negative : Distended, Rebound, Rigid - Extremities Extremities exam: Normal inspection, Full ROM, Normal capillary refill. negative: Calf tenderness, Pedal edema, Tenderness - Neurological Neurological exam: Alert, Normal gait. negative: Abnormal gait, Motor sensory deficit Course Vital Signs 05/29/17 01:32 Temperature 97.9 F Pulse Rate 76 Respiratory 20 Rate Blood Pressure 142/94 Pulse Ox 97 - Reevaluation(s) Reevaluation #1: The patient is doing very well at this time. His pain has completely resolved. Reviewing the patient's hx he has had similar issues off and on for years. I strongly doubt any cardiac or pulmonary etiology at this time. He also is PERC Neg so I believe a PE is extremely unlikely. The patient is instructed to see his PCP next week for recheck and to return to the ER if worse. 05/29/17 02:51 Medical Decision Making - Data Complexity MDM Data: Labs Ordered and/or Reviewed, X-Ray Ordered and/or Reviewed - Lab Data Result diagrams: 05/29/17 01:55 05/29/17 01:55 - EKG Data -: EKG Interpreted by Me EKG: No Acute Changes, Unchanged From Previous - Radiology Data Radiology results: Image reviewed (CXR: Neg) Disposition Disposition: Discharge Clinical Impression: Chronic chest wall pain Disposition: Home, Self-Care Condition: (1) Good Instructions: Chest Wall Pain (ED) Additional Instructions: Please take the Naprosyn for pain. Please see your PCP next week for recheck and return to the ER for any increased pain, L sided CP, trouble breathing or fever. Prescriptions: Naproxen [Naprosyn] 500 mg PO BID #14 tablet.dr Forms: Patient Portal Access Time of Disposition: 02:56 Quality - Quality Measures Quality Measures: N/A - Blood Pressure Screening View Details: Yes Blood Pressure Classification: Hypertensive Reading Systolic Measurement: 142 Diastolic Measurement: 94 Screening for High Blood Pressure: < Pre-Hypertensive BP, F/U Documented > [ G8950] Pre-Hypertensive Follow-up Interventions: Follow-up with rescreen every year.
[2017-05-29] MEDS ORDERED: MAGNESIUM HYDROXIDE/AL HYDROX 30 ML, LIDOCAINE VISC 2% 200 MG PO ONE ×2 (01:53)
[2017-05-29 02:03] LABS: BASO % 0.1 % (0-6); GRAN % 56.4 % (47-80); HEMATOCRIT 44.9 % (42.0-52.0); HEMOGLOBIN 15.4 gm/dl (14.0-18.0); LYMPH % 31.9 % (16-45); MEAN CELL VOLUME 89.1 fl (81-97); MEAN CORPUSCULAR HEMOGLOBIN 30.6 pg (27-33); MEAN CORPUSCULAR HGB CONC 34.3 g/dl (32-36); MEAN PLATELET VOLUME 9.8 fl (7.4-10.4); MONO % 7.6 % (0-9); PLATELET COUNT 277 K/uL (130-400); RED BLOOD COUNT 5.04 M/uL (4.40-5.70); WHITE BLOOD COUNT W/O DIFF 7.6 K/uL (4.2-12.2)
[2017-05-29 02:13] LABS: ALBUMIN 3.9 gm/dL (3.5-5.0); ALKALINE PHOSPHATASE 73 U/L (38-126); ALT/SGPT 62 U/L (21-72); ANION GAP 7.8 (7-16); AST/SGOT 20 U/L (17-59); BILIRUBIN,TOTAL 1.18 mg/dL (0.2-1.3); BLOOD UREA NITROGEN 25 mg/dL (9-20); CARBON DIOXIDE 29.2 mmol/L (22-30); CREATININE 0.8 mg/dL (0.66-1.25); EST GLOMERULAR FILTRATION RATE > 60 ml/min; GLUCOSE,RANDOM 114 mg/dL (70-110); LIPASE 113 U/L (23-300); TOTAL PROTEIN 6.7 gm/dL (6.3-8.2)
[2017-05-29] MEDS ORDERED: KETOROLAC 30 MG/ML VIAL IVP ONE (02:18)
--- NOTE | 2017-05-29 15:13 | RADIOLOGY REPORT ---
EXAM: CHEST, TWO VIEWS HISTORY: RIGHT LATERAL CHEST PAIN FOR A DAY, NO KNOWN INJURY WITH PAIN RIGHT RIBS. TECHNIQUE: PA and lateral views of the chest were obtained. Comparison: Two view chest 04/03/17. FINDINGS: The heart size is within normal limits. The lungs appear expanded with no acute infiltrate seen. No pleural effusion or pneumothorax evident. Minor spurring in the spine. IMPRESSION: MINOR SPURRING IN THE SPINE. NO ACUTE INFILTRATE EVIDENT. JOB NUMBER: [id number] MTDD
== END 2017-05-29 03:07 | disposition home or self-care (01) ==
LOC: ER 01:30
DX: G89.29 Other chronic pain (principal); R07.89 Other chest pain; R10.11 Right upper quadrant pain
CPT/HCPCS: 99284 ×2; 96374; 83690; 85025; 80076; 80048; 71020; 93005; 93010; J1885

== ENCOUNTER 2017-08-02 23:10 | Emergency (ER) | payer MEDICAID ==
[2017-08-02 23:25] LABS: BASO % 0.1 % (0-6); GRAN % 58.9 % (47-80); HEMATOCRIT 44.5 % (42.0-52.0); HEMOGLOBIN 15.4 gm/dl (14.0-18.0); LYMPH % 29.1 % (16-45); MEAN CELL VOLUME 87.8 fl (81-97); MEAN CORPUSCULAR HEMOGLOBIN 30.4 pg (27-33); MEAN CORPUSCULAR HGB CONC 34.6 g/dl (32-36); MEAN PLATELET VOLUME 9.7 fl (7.4-10.4); MONO % 7.9 % (0-9); PLATELET COUNT 310 K/uL (130-400); RED BLOOD COUNT 5.07 M/uL (4.40-5.70); RED CELL DISTRIBUTION WIDTH 13.6 % (11.5-14.5); WHITE BLOOD COUNT W/O DIFF 8.1 K/uL (4.2-12.2)
--- NOTE | 2017-08-02 23:27 | Emergency Department Record ---
History of Present Illness - General Chief Complaint: Chest Pain Stated Complaint: CHEST PAIN Time Seen by Provider: 08/02/17 23:13 Source: Patient Mode of Arrival: Ambulatory Limitations: No limitations - History of Present Illness Initial Comments: 41 yo male presents to ED with a CC of intermittent chest pain symptoms throughout the day. Patient reports that his pain symptoms last several seconds to the left chest before resolving. Patient states "I thought I was having a heart attack, and this does not feel like my anxiety". Patient denies previous diagnosis of heart problems, denies fevers, chills, coughing, calf pain or swelling, or history of DVT. MD Complaint: Chest pain Onset/Timin -: Hour(s) Onset: Other Pain Location: Left chest Severity scale (1-10): 8 Quality: Aching, Sharp Consistency: Intermittent Improves With: Nothing Worsens With: Nothing - Related Data Allergies Allergy/AdvReac Type Severity Reaction Status Date / Time diazepam [From Valium] Allergy Severe DIFFICULTY Verified 05/18/17 03:41 BREATHING Travel Screening - Travel/Exposure Within Last 30 Days Have you traveled within the last 30 days?: No - Travel Symptoms Symptom Screening: None Review of Systems Constitutional: Denies: Chills, Fever, Malaise, Night sweats Eyes: Denies: Eye discharge, Eye pain ENT: Denies: Congestion, Ear pain, Epistaxis Respiratory: Denies: Cough, Dyspnea Cardiovascular: Reports: Chest pain. Denies: Dyspnea on exertion Endocrine: Denies: Fatigue, Heat or cold intolerance Gastrointestinal: Reports: Diarrhea. Denies: Abdominal pain, Nausea, Vomiting Genitourinary: Denies: Incontinence, Retention Musculoskeletal: Denies: Arthralgia, Back pain, Gout, Joint swelling Skin: Denies: Bruising, Change in color Neurological: Denies: Abnormal gait, Confusion, Headache, Seizure Psychiatric: Denies: Anxiety Hematological/Lymphatic: Denies: Anemia, Blood Clots Past Medical History - SOCIAL HISTORY Smoking Status: Former smoker - RESPIRATORY Hx Respiratory Disorders: Yes Hx Bronchitis: Yes Hx Sleep Apnea: Yes Hx of CPAP: Yes Comment:: seasonal allergies - CARDIOVASCULAR Hx Cardio Disorders: Yes Hx Chest Pain: Yes Hx Palpitations: Yes Comment:: RBBB - NEURO Hx Neuro Disorders: No - GI Hx GI Disorders: Yes Hx Reflux: Yes Comment:: "gall bladder functional 7%" - Hx Genitourinary Disorders: No - ENDOCRINE Hx Endocrine Disorders: No - MUSCULOSKELETAL Hx Musculoskeletal Disorders: Yes Hx Back Injury: Yes - PSYCH Hx Psych Problems: Yes Hx Anxiety: Yes Hx Depression: Yes - HEMATOLOGY/ONCOLOGY Hx Hematology/Oncology Disorders: No Family Medical History Any Significant Family History?: Yes Family Hx Comment (NOT TO BE USED IN PLACE OF ITEMS BELOW): COPD WITH MOTHER AND 2 SISTERS Hx Resp Disorders: Mother Physical Exam - General General Appearance: Alert, Oriented x3, Cooperative, Anxious Limitations: No limitations - Head Head exam: Atraumatic, Normocephalic, Normal inspection Head exam detail: negative: Abrasion, Contusion, Vieyra's sign, General tenderness, Hematoma, Laceration - Eye Eye exam: Normal appearance. negative: Conjunctival injection, Periorbital swelling, Periorbital tenderness, Scleral icterus - ENT Ear exam: negative: Auricular hematoma, Auricular trauma Nasal Exam: negative: Active bleeding, Discharge, Dried blood, Foreign body Mouth exam: negative: Drooling, Laceration, Muffled voice, Tongue elevation - Neck Neck exam: Normal inspection. negative: Meningismus, Tenderness - Respiratory Respiratory exam: Normal lung sounds bilaterally. negative: Rales, Respiratory distress, Rhonchi, Stridor - Cardiovascular Cardiovascular Exam: Regular rate, Normal rhythm, Normal heart sounds - GI/Abdominal GI/Abdominal exam: Soft. negative: Rebound, Rigid, Tenderness - Rectal Rectal exam: Deferred - exam: Deferred - Extremities Extremities exam: Normal inspection. negative: Calf tenderness, Pedal edema, Tenderness - Back Back exam: Denies: CVA tenderness (R), CVA tenderness (L) - Neurological Neurological exam: Alert, Normal gait, Oriented X3 - Psychiatric Psychiatric exam: Anxious - Skin Skin exam: Normal color. negative: Abrasion Type of lesion: negative: abrasion Course Vital Signs 08/02/17 23:12 Temperature 97.8 F Pulse Rate 65 Respiratory 16 Rate Blood Pressure 141/86 Pulse Ox 98 - Reevaluation(s) Reevaluation #1: 08/02/17 23:22 EKG: NSR 62 RBBB T wave inversions V3-V6 No acute changes from 05/29/17 Reevaluation #2: 08/02/17 23:30 Patient is PERC negative on examination. Will obtain serial troponins 3-hours apart and CXR for further potential cardiac evaluation. Patient agrees with the plan as discussed. Reevaluation #3: 08/02/17 23:50 Labs reviewed and are grossly unremarkable for an acute process. CXR: No acute intra-thoracic process. Reevaluation #4: 08/03/17 03:01 Repeat Troponin is negative for an acute myocardial injury. 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 Medical Decision Making - Lab Data Result diagrams: 08/02/17 23:15 08/02/17 23:15 Disposition Disposition: Discharge Clinical Impression: Atypical chest pain Disposition: Home, Self-Care Condition: (2) Stable Instructions: Chest Wall Pain (ED) Additional Instructions: Return to ED if your symptoms worsen or if you have any concerns. Follow-up with your internet network specialist in 3-5 days for further evaluation. Forms: Patient Portal Access Time of Disposition: 02:32 Quality - Quality Measures Quality Measures: N/A - Blood Pressure Screening Does Patient Have Any of the Following: No Blood Pressure Classification: Pre-Hypertensive BP Reading Systolic Measurement: 127 Diastolic Measurement: 65 Screening for High Blood Pressure: < Pre-Hypertensive BP, F/U Documented > [ G8950] Pre-Hypertensive Follow-up Interventions: Referral to alternative/primary care provider.
[2017-08-02] MEDS: ASPIRIN 81 MG CHEWABLE TABLET PO ONE (23:29)
[2017-08-02 23:43] LABS: ALB/GLOB RATIO 1.3 (1.1-1.8); ALBUMIN 3.8 g/dL (4.0-5.0); ALKALINE PHOSPHATASE 82 U/L (40-129); ALT/SGPT 35 U/L (<41); AST/SGOT 17 U/L (10.0-50.0); BLOOD UREA NITROGEN 14 mg/dL (6-20); CREATININE 0.7 mg/dL (0.7-1.2); EST GLOMERULAR FILTRATION RATE > 60 mL/min; GLUCOSE,RANDOM 155 mg/dL (74-109); TOTAL PROTEIN 6.8 g/dL (6.6-8.7); TROPONIN I < 0.30 ng/mL (0.00-0.300)
[2017-08-03] MEDS: KETOROLAC 30 MG/ML VIAL IVP ONE (00:41)
--- NOTE | 2017-08-05 08:10 | RADIOLOGY REPORT ---
EXAM: CHEST, TWO VIEWS HISTORY: CHEST PAIN. TECHNIQUE: PA and lateral upright views of the chest were obtained. Comparison: 05/29/17. FINDINGS: The heart, mediastinum, and pulmonary vasculature are normal. The lungs are clear. There is no pneumothorax or effusion. The bones appear intact. IMPRESSION: NEGATIVE CHEST EXAMINATION. JOB NUMBER: [id number] MTDD
== END 2017-08-03 03:21 | disposition home or self-care (01) ==
LOC: ER 23:10
DX: R07.89 Other chest pain (principal); F17.210 Nicotine dependence, cigarettes, uncomplicated
CPT/HCPCS: 99284 ×2; 96374; 85025; 84484; 80053; 71020; 93005; 93010; J1885

== ENCOUNTER 2017-08-24 15:14 | Emergency (ER) | payer MEDICAID ==
[2017-08-24] MEDS ORDERED: METHYLPREDNISOLONE PF 125MG/VIAL IM ONE (16:56)
[2017-08-24] MEDS ORDERED: DIPHENHYDRAMINE HCL IV 50 MG/ML VIAL IM ONE (16:56)
--- NOTE | 2017-08-24 17:50 | Emergency Department Record ---
History of Present Illness - General Chief complaint: ENT Stated complaint: SORE THROAT Time Seen by Provider: 08/24/17 16:49 Source: Patient Mode of Arrival: Ambulatory Limitations: No limitations - History of Present Illness Initial comments: pt is c/o swelling of his uvula. he states it happens ever so often and requires steroids to get better. he is not sure what he reacts to to have this happen but states [place] been going on since 1995 [place] MD complaint: Difficulty swallowing Onset/Timin -: Days(s) Location: Throat Severity: Mild Improves with: None Worsens with: None Associated Symptoms: Pain with swallowing, Sore throat - Related Data Home Medications Medication Instructions Recorded Confirmed Last Taken Aspirin Chewable 162 mg PO DAILY 08/24/17 08/24/17 Unknown Previous Rx's Medication Instructions Recorded Prednisone [Prednisone 20Mg] 20 mg PO BIDPC #8 tab 08/24/17 Allergies Allergy/AdvReac Type Severity Reaction Status Date / Time diazepam [From Valium] Allergy Severe DIFFICULTY Verified 08/24/17 15:48 BREATHING Travel Screening - Travel/Exposure Within Last 30 Days Have you traveled within the last 30 days?: No Review of Systems Reviewed: No additional complaints except as noted below Constitutional: Reports: As per HPI. Denies: Chills, Fever, Malaise, Night sweats, Weakness, Weight change Eyes: Reports: As per HPI. Denies: Eye discharge, Eye pain, Photophobia, Vision change ENT: Reports: As per HPI. Denies: Congestion, Dental pain, Ear pain, Epistaxis , Hearing loss, Throat pain Respiratory: Reports: As per HPI. Denies: Cough, Dyspnea, Hemoptysis, Stridor, Wheezes Cardiovascular: Reports: As per HPI. Denies: Arrhythmia, Chest pain, Dyspnea on exertion, Edema, Murmurs, Orthopnea, Palpitations, Paroxysmal nocturnal dyspnea, Rheumatic Fever, Syncope Endocrine: Reports: As per HPI. Denies: Fatigue, Heat or cold intolerance, Polydipsia, Polyuria Gastrointestinal: Reports: As per HPI. Denies: Abdominal pain, Constipation, Diarrhea, Hematemesis, Hematochezia, Melena, Nausea, Vomiting Genitourinary: Reports: As per HPI. Denies: Dysuria, Frequency, Hematuria, Incontinence, Retention, Testicular pain, Testicular mass, Urgency Musculoskeletal: Reports: As per HPI. Denies: Arthralgia, Back pain, Gout, Joint swelling, Myalgia, Neck pain Skin: Reports: As per HPI. Denies: Bruising, Change in color, Change in hair/ nails, Lesions, Pruritus, Rash Neurological: Reports: As per HPI. Denies: Abnormal gait, Confusion, Headache, Numbness, Paresthesias, Seizure, Tingling, Tremors, Vertigo, Weakness Psychiatric: Reports: As per HPI. Denies: Anxiety, Auditory hallucinations, Depression, Homicidal thoughts, Suicidal thoughts, Visual hallucinations Hematological/Lymphatic: Reports: As per HPI. Denies: Anemia, Blood Clots, Easy bleeding, Easy bruising, Swollen glands Past Medical History - SOCIAL HISTORY Smoking Status: Former smoker Alcohol Use: None Drug Use: None - RESPIRATORY Hx Respiratory Disorders: Yes Hx Bronchitis: Yes Hx Sleep Apnea: Yes Hx of CPAP: Yes Comment:: seasonal allergies - CARDIOVASCULAR Hx Cardio Disorders: Yes Hx Chest Pain: Yes Hx Palpitations: Yes Comment:: RBBB - NEURO Hx Neuro Disorders: No - GI Hx GI Disorders: Yes Hx Reflux: Yes Comment:: "gall bladder functional 7%" - Hx Genitourinary Disorders: No - ENDOCRINE Hx Endocrine Disorders: No - MUSCULOSKELETAL Hx Musculoskeletal Disorders: Yes Hx Back Injury: Yes - PSYCH Hx Psych Problems: Yes Hx Anxiety: Yes Hx Depression: Yes - HEMATOLOGY/ONCOLOGY Hx Hematology/Oncology Disorders: No Family Medical History Any Significant Family History?: Yes Family Hx Comment (NOT TO BE USED IN PLACE OF ITEMS BELOW): COPD WITH MOTHER AND 2 SISTERS Hx Resp Disorders: Mother Physical Exam - General General Appearance: Alert, Oriented x3, Cooperative, Mild distress - Head Head exam: Normal inspection - Eye Eye exam: Normal appearance, PERRL, EOMI Pupils: Normal accommodation - ENT ENT exam: Normal exam, Mucous membranes moist, Normal external ear exam, Normal orophraynx, TM's normal bilaterally Ear exam: Normal external inspection. negative: External canal tenderness Nasal Exam: Normal inspection. negative: Discharge, Sinus tenderness Mouth exam: Normal external inspection, Tongue normal Teeth exam: Normal inspection, Gingival enlargement. negative: Dental caries Throat exam: Tonsillar erythema, Other (swelling of the uvula). negative: Tonsillar exudate - Neck Neck exam: Normal inspection, Full ROM. negative: Tenderness - Respiratory Respiratory exam: Normal lung sounds bilaterally. negative: Respiratory distress - Cardiovascular Cardiovascular Exam: Regular rate, Normal rhythm, Normal heart sounds - GI/Abdominal GI/Abdominal exam: Soft, Normal bowel sounds. negative: Tenderness - Rectal Rectal exam: Deferred - exam: Deferred - Extremities Extremities exam: Normal inspection, Full ROM, Normal capillary refill. negative: Tenderness - Back Back exam: Reports: Normal inspection, Full ROM. Denies: Muscle spasm, Rash noted, Tenderness - Neurological Neurological exam: Alert, CN II-XII intact, Normal gait, Oriented X3 - Psychiatric Psychiatric exam: Normal affect, Normal mood - Skin Skin exam: Dry, Intact, Normal color, Warm Course Vital Signs 08/24/17 15:48 Temperature 98.2 F Pulse Rate 90 Respiratory 18 Rate Blood Pressure 139/88 Pulse Ox 96 - Reevaluation(s) Reevaluation #1: 08/24/17 17:50 pt feels better and wants to go. uvula is still enlarged but has decreased Medical Decision Making - Lab Data Lab Results 08/24/17 Range/Units 15:55 Group A Strep Screen Negative (NEGATIVE) Disposition Disposition: Discharge Clinical Impression: Uvular swelling Disposition: Home, Self-Care Condition: (1) Good Instructions: Uvulitis (ED) Additional Instructions: follow up with family doctor. return sooner if worse. drink cold drinks. take benadryl as needed. Prescriptions: Prednisone [Prednisone 20Mg] 20 mg PO BIDPC #8 tab Quality - Quality Measures Quality Measures: N/A - Blood Pressure Screening Does Patient Have Any of the Following: No Blood Pressure Classification: Pre-Hypertensive BP Reading Systolic Measurement: 139 Diastolic Measurement: 88 Screening for High Blood Pressure: < Pre-Hypertensive BP, F/U Documented > [ G8950] Pre-Hypertensive Follow-up Interventions: Follow-up with rescreen every year.
== END 2017-08-24 18:00 | disposition home or self-care (01) ==
LOC: ER 15:14
DX: K13.79 Other lesions of oral mucosa (principal); R13.10 Dysphagia, unspecified
CPT/HCPCS: 87880; 96372; 99283; J1200; J2930

== ENCOUNTER 2017-10-18 20:12 | Emergency (ER) | payer MEDICAID ==
--- NOTE | 2017-10-18 20:28 | Emergency Department Record ---
History of Present Illness - General Chief complaint: ENT Stated complaint: SWOLLEN THROAT Time Seen by Provider: 10/18/17 20:20 Source: Patient Mode of Arrival: Ambulatory Limitations: No limitations - History of Present Illness Initial comments: The patient is here due to feeling like his throat is swollen for 2 days. He denies any pain, fever, or voice changes but just feels like his Uvula is swollen. He has had a mild cough but denies any fever, HORNE, SOB, LV, or neck pain. The patient has had similar issues in the past and has needed Benadryl and Prednisone. MD complaint: Other Onset/Timin -: Days(s) Severity: Mild Improves with: None Worsens with: None - Related Data Previous Rx's Medication Instructions Recorded Prednisone [Prednisone 20Mg] 40 mg PO DAILY #8 tab 10/18/17 Allergies Allergy/AdvReac Type Severity Reaction Status Date / Time diazepam [From Valium] Allergy Severe DIFFICULTY Verified 08/24/17 15:48 BREATHING Travel Screening - Travel/Exposure Within Last 30 Days Have you traveled within the last 30 days?: No - Travel/Exposure Within Last Year Have you traveled outside the [place] in the last year?: No - Additonal Travel Details Have you been exposed to anyone with a communicable illness?: No - Travel Symptoms Symptom Screening: None Review of Systems Constitutional: Denies: Chills, Fever Eyes: Denies: Eye discharge ENT: Denies: Congestion Respiratory: Denies: Cough, Dyspnea Past Medical History - SOCIAL HISTORY Smoking Status: Former smoker Alcohol Use: Occasional Drug Use: None - RESPIRATORY Hx Respiratory Disorders: Yes Hx Bronchitis: Yes Hx Sleep Apnea: Yes Hx of CPAP: Yes Comment:: seasonal allergies - CARDIOVASCULAR Hx Cardio Disorders: Yes Hx Chest Pain: Yes Hx Palpitations: Yes Comment:: RBBB - NEURO Hx Neuro Disorders: No - GI Hx GI Disorders: Yes Hx Reflux: Yes Comment:: "gall bladder functional 7%" - Hx Genitourinary Disorders: No - ENDOCRINE Hx Endocrine Disorders: No - MUSCULOSKELETAL Hx Musculoskeletal Disorders: Yes Hx Back Injury: Yes - PSYCH Hx Psych Problems: Yes Hx Anxiety: Yes Hx Depression: Yes - HEMATOLOGY/ONCOLOGY Hx Hematology/Oncology Disorders: No Family Medical History Any Significant Family History?: Yes Family Hx Comment (NOT TO BE USED IN PLACE OF ITEMS BELOW): COPD WITH MOTHER AND 2 SISTERS Hx Resp Disorders: Mother Physical Exam - General General Appearance: Alert, Oriented x3, Cooperative, No acute distress - Head Head exam: Atraumatic, Normocephalic, Normal inspection - Eye Eye exam: Normal appearance, PERRL, EOMI - ENT ENT exam: TM's normal bilaterally. negative: Normal exam, Normal orophraynx Throat exam: Tonsillar erythema, Other (The uvula is mildly edematous.). negative: Normal inspection, Tonsillomegaly, Tonsillar exudate, R peritonsillar mass, L peritonsillar mass - Neck Neck exam: Normal inspection, Full ROM. negative: Tenderness - Respiratory Respiratory exam: Normal lung sounds bilaterally. negative: Respiratory distress - Cardiovascular Cardiovascular Exam: Regular rate, Normal rhythm, Normal heart sounds - Extremities Extremities exam: Normal inspection, Full ROM, Normal capillary refill. negative: Tenderness Course Vital Signs 10/18/17 20:14 Temperature 98.4 F Pulse Rate 77 Respiratory 20 Rate Blood Pressure 147/96 Pulse Ox 97 - Reevaluation(s) Reevaluation #1: The patient is doing very well. I did explain to him the Rapid Strep is neg. He will be discharge on Prednisone and Benadryl. 10/18/17 20:42 Medical Decision Making - Data Complexity MDM Data: Labs Ordered and/or Reviewed (Rapid Strep: Neg) Disposition Disposition: Discharge Clinical Impression: Uvular swelling Disposition: Home, Self-Care Condition: (2) Stable Instructions: Uvulitis (ED) Additional Instructions: Please take Tylenol for any pain and take Benadryl for 4 more days along with Prednisone. Please see your PCP next week if not better and return to the ER for any worsening symptoms. Prescriptions: Prednisone [Prednisone 20Mg] 40 mg PO DAILY #8 tab Forms: Patient Portal Access Time of Disposition: 20:44 Quality - Quality Measures Quality Measures: N/A - Blood Pressure Screening View Details: Yes Does Patient Have Any of the Following: No Blood Pressure Classification: Hypertensive Reading Systolic Measurement: 147 Diastolic Measurement: 96 Screening for High Blood Pressure: < Pre-Hypertensive BP, F/U Documented > [ G8950] Pre-Hypertensive Follow-up Interventions: Referral to alternative/primary care provider.
[2017-10-18] MEDS ORDERED: DIPHENHYDRAMINE HCL IV 50 MG/ML VIAL IM ONE (20:29)
[2017-10-18] MEDS ORDERED: PREDNISONE 20 MG TAB PO ONE (20:39)
== END 2017-10-18 20:49 | disposition home or self-care (01) ==
LOC: ER 20:12
DX: K13.79 Other lesions of oral mucosa (principal)
CPT/HCPCS: 99283 ×2; 96372; 87880; J7512; J1200

== ENCOUNTER 2017-12-04 02:31 | Emergency (ER) | payer MEDICAID ==
[2017-12-04] MEDS: KETOROLAC 30 MG/ML VIAL IVP ONE (02:51)
--- NOTE | 2017-12-04 02:52 | Emergency Department Record ---
History of Present Illness - General Chief Complaint: Abdominal Pain Stated Complaint: ABDOMINAL PAIN Time Seen by Provider: 12/04/17 02:47 Source: Patient Mode of Arrival: Ambulatory Limitations: No limitations - History of Present Illness Initial Comments: 42 yo male presents to ED presents to ED for evaluation of abdominal pain that began 12 hours ago. Patient reports "it's my gallbladder, it's not functioning but I don't have stones". Patient denies nausea, vomiting, change in stools, or previous abdominal surgery. Patient denies fevers, chills, or recent illness. Patient reports taking Tylenol that did not improve his symptoms. MD Complaint: Abdominal pain Onset/Timin -: Hour(s) Location: RUQ Radiation: Back Quality: Burning Consistency: Constant Improves With: Other Worsens With: Nothing Associated Symptoms: Diarrhea - Related Data Allergies Allergy/AdvReac Type Severity Reaction Status Date / Time diazepam [From Valium] Allergy Severe DIFFICULTY Verified 08/24/17 15:48 BREATHING Travel Screening - Travel/Exposure Within Last 30 Days Have you traveled within the last 30 days?: No - Travel Symptoms Symptom Screening: None Review of Systems Constitutional: Denies: Chills, Fever, Malaise, Night sweats Eyes: Denies: Eye discharge, Eye pain ENT: Denies: Congestion, Ear pain, Epistaxis Respiratory: Denies: Cough, Dyspnea Cardiovascular: Denies: Chest pain, Dyspnea on exertion Endocrine: Denies: Fatigue, Heat or cold intolerance Gastrointestinal: Reports: Abdominal pain. Denies: Nausea, Vomiting Genitourinary: Denies: Incontinence, Retention Musculoskeletal: Denies: Arthralgia, Back pain, Gout, Joint swelling Skin: Denies: Bruising, Change in color Neurological: Denies: Abnormal gait, Confusion, Headache, Seizure Psychiatric: Denies: Anxiety Hematological/Lymphatic: Denies: Anemia, Blood Clots Past Medical History - SOCIAL HISTORY Smoking Status: Former smoker - RESPIRATORY Hx Respiratory Disorders: Yes Hx Bronchitis: Yes Hx Sleep Apnea: Yes Hx of CPAP: Yes Comment:: seasonal allergies - CARDIOVASCULAR Hx Cardio Disorders: Yes Hx Chest Pain: Yes Hx Palpitations: Yes Comment:: RBBB - NEURO Hx Neuro Disorders: No - GI Hx GI Disorders: Yes Hx Reflux: Yes Comment:: "gall bladder functional 7%" - Hx Genitourinary Disorders: No - ENDOCRINE Hx Endocrine Disorders: No - MUSCULOSKELETAL Hx Musculoskeletal Disorders: Yes Hx Back Injury: Yes - PSYCH Hx Psych Problems: Yes Hx Anxiety: Yes Hx Depression: Yes - HEMATOLOGY/ONCOLOGY Hx Hematology/Oncology Disorders: No Family Medical History Any Significant Family History?: Yes Family Hx Comment (NOT TO BE USED IN PLACE OF ITEMS BELOW): COPD WITH MOTHER AND 2 SISTERS Hx Resp Disorders: Mother Physical Exam - General General Appearance: Alert, Oriented x3, Cooperative, No acute distress Limitations: No limitations - Head Head exam: Atraumatic, Normocephalic, Normal inspection Head exam detail: negative: Abrasion, Contusion, Vieyra's sign, General tenderness, Hematoma, Laceration - Eye Eye exam: Normal appearance. negative: Conjunctival injection, Periorbital swelling, Periorbital tenderness, Scleral icterus - ENT Ear exam: negative: Auricular hematoma, Auricular trauma Nasal Exam: negative: Active bleeding, Discharge, Dried blood, Foreign body Mouth exam: negative: Drooling, Laceration, Muffled voice, Tongue elevation - Neck Neck exam: Normal inspection. negative: Meningismus, Tenderness - Respiratory Respiratory exam: Normal lung sounds bilaterally. negative: Rales, Respiratory distress, Rhonchi, Stridor - Cardiovascular Cardiovascular Exam: Regular rate, Normal rhythm, Normal heart sounds - GI/Abdominal GI/Abdominal exam: Soft, Tenderness (Mild TTP RUQ, no rebound or guarding present). negative: Rebound, Rigid - Rectal Rectal exam: Deferred - exam: Deferred - Extremities Extremities exam: Normal inspection. negative: Pedal edema, Tenderness - Back Back exam: Denies: CVA tenderness (R), CVA tenderness (L) - Neurological Neurological exam: Alert, Normal gait, Oriented X3 - Psychiatric Psychiatric exam: Normal affect, Normal mood - Skin Skin exam: Normal color. negative: Abrasion Type of lesion: negative: abrasion Course Vital Signs 12/04/17 02:35 Temperature 98.4 F Pulse Rate 79 Respiratory 20 Rate Blood Pressure 156/99 Pulse Ox 100 - Reevaluation(s) Reevaluation #1: 12/04/17 03:11 Labs reviewed and are grossly unremarkable for an acute process. Patient reassessed and reports improvement in his symptoms, appears stable for discharge at this time. Medical Decision Making - Lab Data Result diagrams: 12/04/17 02:40 12/04/17 02:40 Disposition Disposition: Discharge Clinical Impression: Abdominal pain Qualifiers: Abdominal location: right upper quadrant Qualified Code(s): R10.11 - Right upper quadrant pain Disposition: Home, Self-Care Condition: (2) Stable Instructions: Abdominal Pain (ED) Additional Instructions: Return to ED if your symptoms worsen or if you have any concerns. Follow-up with your family doctor in 3-5 days as directed. Forms: Patient Portal Access Time of Disposition: 03:12 Quality - Quality Measures Quality Measures: N/A - Blood Pressure Screening Does Patient Have Any of the Following: No Blood Pressure Classification: Hypertensive Reading Systolic Measurement: 156 Diastolic Measurement: 99 Screening for High Blood Pressure: < Second Hypertensive BP, F/U Documented > [ G8950] Second Hypertensive Follow-up Interventions: Referral to alternative/primary care provider.
[2017-12-04 02:56] LABS: BASO % 0.1 % (0-6); EOS % 4.6 % (0-6); GRAN % 57.8 % (47-80); HEMATOCRIT 47.6 % (42.0-52.0); HEMOGLOBIN 16.4 gm/dl (14.0-18.0); LYMPH % 29.9 % (16-45); MEAN CELL VOLUME 88.5 fl (81-97); MEAN CORPUSCULAR HEMOGLOBIN 30.5 pg (27-33); MEAN CORPUSCULAR HGB CONC 34.5 g/dl (32-36); MONO % 7.6 % (0-9); PLATELET COUNT 336 K/uL (130-400); RED BLOOD COUNT 5.38 M/uL (4.40-5.70); RED CELL DISTRIBUTION WIDTH 13.3 % (11.5-14.5); WHITE BLOOD COUNT W/O DIFF 8.7 K/uL (4.2-12.2)
[2017-12-04 03:10] LABS: ALB/GLOB RATIO 1.6 (1.1-1.8); ALBUMIN 4.4 g/dL (4.0-5.0); ALKALINE PHOSPHATASE 77 U/L (40-129); ALT/SGPT 38 U/L (<41); AST/SGOT 17 U/L (10.0-50.0); BLOOD UREA NITROGEN 16 mg/dL (6-20); CREATININE 0.8 mg/dL (0.7-1.2); EST GLOMERULAR FILTRATION RATE > 60 mL/min; GLUCOSE,RANDOM 126 mg/dL (74-109); LIPASE 30 U/L (13-60); TOTAL PROTEIN 7.2 g/dL (6.6-8.7)
== END 2017-12-04 03:22 | disposition home or self-care (01) ==
LOC: ER 02:31
DX: R10.11 Right upper quadrant pain (principal); R19.7 Diarrhea, unspecified; Z87.891 Personal history of nicotine dependence
CPT/HCPCS: 80053; 83690; 85025; 96374; 99284; J1885

== ENCOUNTER 2018-02-18 09:55 | Emergency (ER) | payer MEDICAID ==
--- NOTE | 2018-02-18 10:06 | Emergency Department Record ---
History of Present Illness - General Chief Complaint: Chest Pain Stated Complaint: CHEST PAIN Time Seen by Provider: 02/18/18 09:58 Source: Patient Mode of Arrival: Ambulatory Limitations: No limitations - History of Present Illness Initial Comments: 42 yo male presents with chest pain. He states he is under tremendous pressure and stress. He has anxiety, panic attacks and bipolar. He developed anxiety symptoms this morning with chest discomfort. These symptoms are typical when he has anxiety. He has been evaluated with stress tests 3 times in the past per the patient. He states 2 times at [facility] and once at [facility] (09/25/18). The symptoms do not occur or worsen with exertion. He feels anxious and shaky. No known or diagnosed CAD. No family hx of CAD. He is a non smoker. Today the pain is sharp in nature on the left and mostly with deep breaths. MD Complaint: Chest pain Onset/Timin -: Hour(s) Onset: Other Pain Location: Substernal, Left chest Pain Radiation: None Severity scale (1-10): 5 Quality: Tightness Consistency: Constant Improves With: Nothing Worsens With: Nothing Treatments Prior to Arrival: None - Related Data Allergies Allergy/AdvReac Type Severity Reaction Status Date / Time diazepam [From Valium] Allergy Severe DIFFICULTY Verified 01/28/18 14:53 BREATHING Travel Screening - Travel/Exposure Within Last 30 Days Have you traveled within the last 30 days?: No Review of Systems Constitutional: Denies: Chills, Fever, Malaise, Weakness Eyes: Denies: Eye discharge ENT: Denies: Congestion, Throat pain Respiratory: Denies: Cough, Dyspnea, Hemoptysis, Stridor, Wheezes Cardiovascular: Reports: As per HPI, Chest pain. Denies: Palpitations, Syncope Endocrine: Denies: Fatigue, Polydipsia, Polyuria Gastrointestinal: Denies: Abdominal pain, Diarrhea, Nausea, Vomiting Genitourinary: Denies: Dysuria, Frequency, Hematuria Musculoskeletal: Denies: Arthralgia, Back pain, Joint swelling, Myalgia, Neck pain Skin: Denies: Bruising, Change in color, Rash Neurological: Denies: Confusion, Headache, Numbness, Weakness Psychiatric: Denies: Anxiety Hematological/Lymphatic: Denies: Blood Clots, Easy bleeding, Easy bruising, Swollen glands Past Medical History - SOCIAL HISTORY Smoking Status: Former smoker Alcohol Use: Occasional Drug Use: None - RESPIRATORY Hx Respiratory Disorders: Yes Hx Bronchitis: Yes Hx Sleep Apnea: Yes Hx of CPAP: Yes Comment:: seasonal allergies - CARDIOVASCULAR Hx Cardio Disorders: Yes Hx Chest Pain: Yes Hx Palpitations: Yes Comment:: RBBB - NEURO Hx Neuro Disorders: No - GI Hx GI Disorders: Yes Hx Reflux: Yes Comment:: "gall bladder functional 7%" - Hx Genitourinary Disorders: No - ENDOCRINE Hx Endocrine Disorders: No - MUSCULOSKELETAL Hx Musculoskeletal Disorders: Yes Hx Back Injury: Yes - PSYCH Hx Psych Problems: Yes Hx Anxiety: Yes Hx Depression: Yes - HEMATOLOGY/ONCOLOGY Hx Hematology/Oncology Disorders: No Family Medical History Any Significant Family History?: Yes Family Hx Comment (NOT TO BE USED IN PLACE OF ITEMS BELOW): COPD WITH MOTHER AND 2 SISTERS Hx Resp Disorders: Mother Physical Exam - General General Appearance: Alert, Oriented x3, Cooperative, No acute distress Limitations: No limitations - Head Head exam: Atraumatic, Normal inspection - Eye Eye exam: Normal appearance. negative: Conjunctival injection, Scleral icterus - ENT ENT exam: Normal exam, Mucous membranes moist Ear exam: Normal external inspection Nasal Exam: Normal inspection Mouth exam: Normal external inspection Teeth exam: Normal inspection Throat exam: Normal inspection. negative: Tonsillar erythema, Tonsillomegaly - Neck Neck exam: Normal inspection. negative: Lymphadenopathy, Tenderness - Respiratory Respiratory exam: Normal lung sounds bilaterally. negative: Accessory muscle use, Decreased breath sounds, Prolonged expiratory, Respiratory distress, Rhonchi, Stridor, Wheezes - Cardiovascular Cardiovascular Exam: Regular rate, Normal rhythm, Normal heart sounds. negative : Diastolic murmur, Systolic murmur Peripheral Pulses: 2+: Radial (R), Radial (L) - GI/Abdominal GI/Abdominal exam: Soft. negative: Tenderness - Rectal Rectal exam: Deferred - exam: Deferred - Extremities Extremities exam: Normal inspection, Full ROM, Normal capillary refill. negative: Calf tenderness, Pedal edema, Tenderness - Back Back exam: Reports: Normal inspection, Full ROM. Denies: CVA tenderness (R), CVA tenderness (L), Muscle spasm, Rash noted, Tenderness - Neurological Neurological exam: Alert, Oriented X3. negative: Altered - Psychiatric Psychiatric exam: Anxious (mild) - Skin Skin exam: Dry, Intact, Normal color, Warm Course Vital Signs 02/18/18 09:56 Temperature 97.7 F Pulse Rate 75 Respiratory 26 H Rate Blood Pressure 142/100 Pulse Ox 98 - Reevaluation(s) Reevaluation #1: EKG 09:59 NSR rate 80, intervals RBBB (old), [place] L, ST no acute changes. No changes from 08/02/17 EMR Reviewed. Normal stress test to 9 mets 09/25/[address] Thurman 09/25/16 and March 2016 for atypical chest pain. 02/18/18 10:03 02/18/18 10:12 Ativan was ordered for anxiety/ panic attack. He states he can take ativan without adverse reactions (allergy listed to valium) 02/18/18 10:52 The CBC,BMP,Troponin and D-dimer are negative. 02/18/18 10:58 The patient states that his anxiety has resolved after the Ativan. His pain resolved as the anxiety resolved. He is resting very comfortably. 02/18/18 13:40 The repeat troponin is negative DC home with instructions for anxiety and atypical chest pain He was referred to cardiology for his atypical chest Medical Decision Making - Lab Data Result diagrams: 02/18/18 10:00 02/18/18 10:00 Disposition Disposition: Discharge Clinical Impression: Anxiety reaction, Atypical chest pain Disposition: Home, Self-Care Condition: (1) Good Instructions: Chest Pain (ED), Anxiety (ED) Additional Instructions: Call your doctor for close follow up of today's ER visit Return if any chest pain returns Forms: Patient Portal Access Time of Disposition: 13:40 Quality - Quality Measures Quality Measures: N/A - Blood Pressure Screening Does Patient Have Any of the Following: No Blood Pressure Classification: Hypertensive Reading Systolic Measurement: 142 Diastolic Measurement: 100 Screening for High Blood Pressure: < Pre-Hypertensive BP, F/U Documented > [ G8950] Pre-Hypertensive Follow-up Interventions: Referral to alternative/primary care provider.
[2018-02-18] MEDS: LORAZEPAM 2 MG/ML VIAL IV ONE (10:22)
[2018-02-18 10:23] LABS: BASO % 0.1 % (0-6); EOS % 4.5 % (0-6); GRAN % 48.8 % (47-80); HEMATOCRIT 48.3 % (42.0-52.0); HEMOGLOBIN 16.5 gm/dl (14.0-18.0); LYMPH % 38.2 % (16-45); MEAN CELL VOLUME 89.8 fl (81-97); MEAN CORPUSCULAR HEMOGLOBIN 30.7 pg (27-33); MEAN CORPUSCULAR HGB CONC 34.2 g/dl (32-36); MEAN PLATELET VOLUME 10.2 fl (7.4-10.4); MONO % 8.4 % (0-9); PLATELET COUNT 318 K/uL (130-400); RED BLOOD COUNT 5.38 M/uL (4.40-5.70); RED CELL DISTRIBUTION WIDTH 13.2 % (11.5-14.5); WHITE BLOOD COUNT W/O DIFF 7.4 K/uL (4.2-12.2)
[2018-02-18 10:35] LABS: BLOOD UREA NITROGEN 14 mg/dL (6-20); CREATININE 0.8 mg/dL (0.7-1.2); EST GLOMERULAR FILTRATION RATE > 60 mL/min
[2018-02-18 10:37] LABS: GLUCOSE,RANDOM 105 mg/dL (74-109)
--- NOTE | 2018-02-18 14:30 | RADIOLOGY REPORT ---
EXAM: CHEST, TWO VIEWS HISTORY: CHEST PAIN. TECHNIQUE: Frontal and lateral views of the chest were obtained. Comparison: 08/02/17 chest. FINDINGS: The heart size is normal. The lungs are clear. No pneumothorax. IMPRESSION: NEGATIVE CHEST EXAMINATION. JOB NUMBER: [id number] MTDD
== END 2018-02-18 13:57 | disposition home or self-care (01) ==
LOC: ER 09:55
DX: R07.89 Other chest pain (principal); F41.1 Generalized anxiety disorder; F43.0 Acute stress reaction; Z87.891 Personal history of nicotine dependence
CPT/HCPCS: 71046; 80048; 84484; 85025; 85379; 93005; 93010; 96374; 99284

== ENCOUNTER 2018-04-12 10:02 | Emergency (ER) | payer MEDICAID ==
--- NOTE | 2018-04-12 11:18 | Emergency Department Record ---
History of Present Illness - General Chief Complaint: Cough Stated Complaint: UPPER RESP. Time Seen by Provider: 04/12/18 11:07 Source: Patient Mode of Arrival: Ambulatory Limitations: No limitations - History of Present Illness Initial Comments: The patient is here due to a dry cough with a clear runny nose and mild congestion for one day. He states they are cutting the hay behind his house and he thinks he could be having an allergic reaction from that. He denies any CP, SOB, LV, fever or sputum. MD Complaint: Cough, Rhinorrhea Onset/Timin -: Days(s) Severity: Mild Consistency: Constant - Related Data Previous Rx's Medication Instructions Recorded Albuterol Sulfate [Proair Hfa] 2 puff IH QID PRN #1 inhaler 04/12/18 Benzonatate [Tessalon Perle] 100 mg PO TID #15 capsule 04/12/18 Prednisone [Prednisone 20Mg] 40 mg PO DAILY #10 tab 04/12/18 Allergies Allergy/AdvReac Type Severity Reaction Status Date / Time diazepam [From Valium] Allergy Severe DIFFICULTY Verified 04/12/18 10:59 BREATHING Travel Screening - Travel/Exposure Within Last 30 Days Have you traveled within the last 30 days?: No Review of Systems Constitutional: Denies: Chills, Fever, Malaise Eyes: Denies: Eye discharge ENT: Reports: Congestion Respiratory: Reports: Cough. Denies: Dyspnea Past Medical History - SOCIAL HISTORY Smoking Status: Former smoker Alcohol Use: None Drug Use: None - RESPIRATORY Hx Respiratory Disorders: Yes Hx Bronchitis: Yes Hx Sleep Apnea: Yes Hx of CPAP: Yes Comment:: seasonal allergies - CARDIOVASCULAR Hx Cardio Disorders: Yes Hx Chest Pain: Yes Hx Palpitations: Yes Comment:: RBBB - NEURO Hx Neuro Disorders: No - GI Hx GI Disorders: Yes Hx Reflux: Yes Comment:: "gall bladder functional 7%" - Hx Genitourinary Disorders: No - ENDOCRINE Hx Endocrine Disorders: No - MUSCULOSKELETAL Hx Musculoskeletal Disorders: Yes Hx Back Injury: Yes - PSYCH Hx Psych Problems: Yes Hx Anxiety: Yes Hx Depression: Yes - HEMATOLOGY/ONCOLOGY Hx Hematology/Oncology Disorders: No Family Medical History Any Significant Family History?: Yes Family Hx Comment (NOT TO BE USED IN PLACE OF ITEMS BELOW): COPD WITH MOTHER AND 2 SISTERS Hx Resp Disorders: Mother Physical Exam - General General Appearance: Alert, Oriented x3, Cooperative, No acute distress - Head Head exam: Atraumatic, Normocephalic, Normal inspection - Eye Eye exam: Normal appearance, PERRL, EOMI - ENT ENT exam: Normal exam, Mucous membranes moist, Normal external ear exam, Normal orophraynx, TM's normal bilaterally Throat exam: Normal inspection. negative: Tonsillar erythema, Tonsillar exudate - Neck Neck exam: Normal inspection, Full ROM. negative: Lymphadenopathy, Tenderness - Respiratory Respiratory exam: Normal lung sounds bilaterally. negative: Respiratory distress - Cardiovascular Cardiovascular Exam: Regular rate, Normal rhythm, Normal heart sounds Course Vital Signs 04/12/18 10:55 Temperature 97.9 F Pulse Rate [ 75 Pulse Ox Probe] Respiratory 16 Rate Blood Pressure 128/98 [Left Arm] Pulse Ox 96 - Reevaluation(s) Reevaluation #1: I explained to the patient that it appears he is most likely having an allergy attack causing the coughing. He is to see his PCP if not better in 3 days. 04/12/18 11:20 Disposition Disposition: Discharge Clinical Impression: URI (upper respiratory infection) Qualifiers: URI type: unspecified URI Qualified Code(s): J06.9 - Acute upper respiratory infection, unspecified Disposition: Home, Self-Care Condition: (2) Stable Instructions: Cold Symptoms (ED) Additional Instructions: Please use the Inhaller, cough medicine and Prednisone as directed. Please see your family doctor for recheck in 2-3 days if not better and return to the ER for any worsening symptoms. Prescriptions: Albuterol Sulfate [Proair Hfa] 2 puff IH QID PRN #1 inhaler PRN Reason: Cough And Difficulty Breathing Benzonatate [Tessalon Perle] 100 mg PO TID #15 capsule Prednisone [Prednisone 20Mg] 40 mg PO DAILY #10 tab Forms: Patient Portal Access Time of Disposition: 11:18 Quality - Quality Measures Quality Measures: N/A - Blood Pressure Screening View Details: Yes Does Patient Have Any of the Following: No Blood Pressure Classification: Hypertensive Reading Systolic Measurement: 128 Diastolic Measurement: 98 Screening for High Blood Pressure: < First Hypertensive BP, F/U Documented > [ G8950] First Hypertensive Follow-up Interventions: Referral to alternative/primary care provider.
== END 2018-04-12 11:30 | disposition home or self-care (01) ==
LOC: ER 10:02
DX: J06.9 Acute upper respiratory infection, unspecified (principal); Z87.891 Personal history of nicotine dependence
CPT/HCPCS: 99282

== ENCOUNTER 2018-05-04 14:59 | Emergency (ER) | payer MEDICAID ==
--- NOTE | 2018-05-04 17:03 | Emergency Department Record ---
History of Present Illness - General Stated complaint: DIARREHA Time Seen by Provider: 05/04/18 16:49 Source: Patient, Family Mode of Arrival: Ambulatory Limitations: No limitations - History of Present Illness Initial comments: 42 yo male presents with 4 days of watery diarrhea. No blood. No fevers. He states this has occurred at times in the past. 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 No pain. No vomiting. He has taken Immodium without good results. He had a colonoscopy in the past that was unremarkable per him. MD complaint: Diarrhea -: Days(s) (4) Description of Vomiting: Watery Description of Diarrhea: Water Associated Abdominal Pain: No Radiation: None Severity: Moderate Quality: Cramping Consistency: Constant Improves with: None Worsens with: Eating Context: Other Associated Symptoms: Other - Related Data Home Medications Medication Instructions Recorded Confirmed Last Taken Buspirone HCl [Buspar] 10 mg PO DAILY 05/04/18 05/04/18 05/04/18 Previous Rx's Medication Instructions Recorded Albuterol Sulfate [Proair Hfa] 2 puff IH QID PRN #1 inhaler 04/12/18 Dicyclomine HCl [Bentyl] 10 mg PO Q8H #15 cap 05/04/18 Allergies Allergy/AdvReac Type Severity Reaction Status Date / Time diazepam [From Valium] Allergy Severe DIFFICULTY Verified 05/04/18 17:21 BREATHING Review of Systems Constitutional: Denies: Chills, Fever, Night sweats, Weakness Eyes: Denies: Eye discharge ENT: Denies: Congestion, Throat pain Respiratory: Denies: Cough, Dyspnea Cardiovascular: Denies: Chest pain, Palpitations, Syncope Endocrine: Denies: Fatigue Gastrointestinal: Reports: Diarrhea. Denies: Abdominal pain, Constipation, Hematemesis, Hematochezia, Melena Genitourinary: Denies: Dysuria, Frequency, Hematuria Musculoskeletal: Denies: Arthralgia, Back pain, Joint swelling, Myalgia Skin: Denies: Bruising, Change in color, Rash Neurological: Denies: Confusion, Headache, Numbness, Weakness Psychiatric: Denies: Anxiety Past Medical History - SOCIAL HISTORY Smoking Status: Former smoker Drug Use: None - RESPIRATORY Hx Respiratory Disorders: Yes Hx Bronchitis: Yes Hx Sleep Apnea: Yes Hx of CPAP: Yes Comment:: seasonal allergies - CARDIOVASCULAR Hx Cardio Disorders: Yes Hx Chest Pain: Yes Hx Palpitations: Yes Comment:: RBBB - NEURO Hx Neuro Disorders: No - GI Hx GI Disorders: Yes Hx Reflux: Yes Comment:: "gall bladder functional 7%" - Hx Genitourinary Disorders: No - ENDOCRINE Hx Endocrine Disorders: No - MUSCULOSKELETAL Hx Musculoskeletal Disorders: Yes Hx Back Injury: Yes - PSYCH Hx Psych Problems: Yes Hx Anxiety: Yes Hx Depression: Yes - HEMATOLOGY/ONCOLOGY Hx Hematology/Oncology Disorders: No Family Medical History Family Hx Comment (NOT TO BE USED IN PLACE OF ITEMS BELOW): COPD WITH MOTHER AND 2 SISTERS Hx Resp Disorders: Mother Physical Exam - General General Appearance: Alert, Oriented x3, Cooperative, No acute distress Limitations: No limitations - Head Head exam: Normal inspection - Eye Eye exam: Normal appearance, PERRL. negative: Conjunctival injection - ENT ENT exam: Normal exam Ear exam: Normal external inspection Nasal Exam: Normal inspection Mouth exam: Normal external inspection Teeth exam: Normal inspection - Neck Neck exam: Normal inspection, Full ROM. negative: Tenderness - Respiratory Respiratory exam: Normal lung sounds bilaterally. negative: Respiratory distress - Cardiovascular Cardiovascular Exam: Regular rate, Normal rhythm, Normal heart sounds - GI/Abdominal GI/Abdominal exam: Soft. negative: Distended, Guarding, Tenderness - Rectal Rectal exam: Deferred - exam: Deferred - Extremities Extremities exam: Normal inspection, Full ROM, Normal capillary refill. negative: Tenderness - Back Back exam: Denies: CVA tenderness (R), CVA tenderness (L) - Neurological Neurological exam: Alert, Oriented X3 - Psychiatric Psychiatric exam: Normal affect, Normal mood - Skin Skin exam: Dry, Intact, Normal color, Warm Course Vital Signs 05/04/18 16:41 Temperature 99.0 F Pulse Rate [ 63 Pulse Ox Probe] Respiratory 20 Rate Blood Pressure 139/97 [Left Arm] Pulse Ox 97 - Reevaluation(s) Reevaluation #1: 05/04/18 19:08 The CBC was reviewed No acute changes. Medical Decision Making - Lab Data Result diagrams: 05/04/18 18:53 05/04/18 18:53 Disposition Disposition: Discharge Clinical Impression: Diarrhea Qualifiers: Diarrhea type: unspecified type Qualified Code(s): R19.7 - Diarrhea, unspecified Disposition: Home, Self-Care Condition: (1) Good Instructions: Dehydration (ED), Gastroenteritis (ED) Additional Instructions: Return to ED if your symptoms worsen or if you have any new concerns. Take the prescriptions provided today as directed. Call your family doctor to schedule the next available appointment for a recheck. Review the final Emergency Record and test results with your doctor on follow up Bring the stool sample to the lab if one is obtained Prescriptions: Dicyclomine HCl [Bentyl] 10 mg PO Q8H #15 cap Forms: Patient Portal Access Time of Disposition: 18:51 Quality - Quality Measures Quality Measures: N/A - Blood Pressure Screening Does Patient Have Any of the Following: No Blood Pressure Classification: Hypertensive Reading Systolic Measurement: 153 Diastolic Measurement: 96 Screening for High Blood Pressure: < Pre-Hypertensive BP, F/U Documented > [ G8950] Pre-Hypertensive Follow-up Interventions: Referral to alternative/primary care provider.
[2018-05-04] MEDS ORDERED: 0.9 % SODIUM CHLORIDE 1,000 ML BAG IV ONE (18:44)
[2018-05-04] MEDS ORDERED: DICYCLOMINE HCL 10 MG CAPSULE PO ONE (18:45)
[2018-05-04] MEDS ORDERED: CYCLOBENZAPRINE 10MG TABLET PO ONE (18:48)
[2018-05-04 19:00] LABS: BASO % 0.3 % (0-6); EOS % 6.3 % (0-6); GRAN % 54.8 % (47-80); HEMATOCRIT 45.4 % (42.0-52.0); HEMOGLOBIN 15.3 gm/dl (14.0-18.0); LYMPH % 31.3 % (16-45); MEAN CELL VOLUME 90.3 fl (81-97); MEAN CORPUSCULAR HEMOGLOBIN 30.4 pg (27-33); MEAN CORPUSCULAR HGB CONC 33.7 g/dl (32-36); MONO % 7.3 % (0-9); PLATELET COUNT 265 K/uL (130-400); RED BLOOD COUNT 5.03 M/uL (4.40-5.70); RED CELL DISTRIBUTION WIDTH 13.3 % (11.5-14.5)
[2018-05-04 19:15] LABS: BLOOD UREA NITROGEN 13 mg/dL (6-20); CREATININE 0.7 mg/dL (0.7-1.2); EST GLOMERULAR FILTRATION RATE > 60 mL/min
[2018-05-04 19:16] LABS: TOTAL PROTEIN 6.4 g/dL (6.6-8.7)
[2018-05-04 19:18] LABS: GLUCOSE,RANDOM 112 mg/dL (74-109)
[2018-05-04 19:20] LABS: ALB/GLOB RATIO 1.5 (1.1-1.8); ALBUMIN 3.8 g/dL (4.0-5.0); ALKALINE PHOSPHATASE 83 U/L (40-129); ALT/SGPT 44 U/L (<41); AST/SGOT 18 U/L (10.0-50.0)
[2018-05-04 19:21] LABS: LIPASE 20 U/L (13-60)
[2018-05-04] MEDS ORDERED: POTASSIUM CHLORIDE 20 MEQ TABLET PO ONE (19:32)
== END 2018-05-04 20:25 | disposition home or self-care (01) ==
LOC: ER 14:59
DX: R19.7 Diarrhea, unspecified (principal); F17.210 Nicotine dependence, cigarettes, uncomplicated
CPT/HCPCS: 80053; 83690; 85025; 96360; 99284; J7030

== ENCOUNTER 2018-06-09 06:57 | Day surgery (SDC) | payer MEDICAID ==
[~2018-06-09 06:57] MED LIST: ACETAMINOPHEN 1,000 MG/100 ML BTL IV ONE; FAMOTIDINE 20MG TABLET PO ONE; MECLIZINE 25 MG TABLET PO ONE; METOCLOPRAMIDE 10 MG TABLET PO ONE
[2018-06-09] MEDS ORDERED: PROPOFOL 10 MG/ML VIAL IV ONE (06:58)
[2018-06-09] MEDS ORDERED: SEVOFLURANE 250 ML INH ONE (06:58)
[2018-06-09] MEDS ORDERED: LIDOCAINE 2% MDV (20MG/ML) 20ML VIAL IV ONE (06:58)
[2018-06-09] MEDS ORDERED: BUPIVACAINE 0.25% W/EPI MPF 30ML VIAL IVP ONE (06:58)
[2018-06-09] MEDS ORDERED: SUGAMMADEX SODIUM 200 MG/2 ML VIAL IV ONE (06:58)
[2018-06-09] MEDS ORDERED: ROCURONIUM BROMIDE 50MG/5ML VIAL IV ONE (06:58)
[2018-06-09] MEDS ORDERED: *PACU ONLY* KETAMINE HCL 10 MG/ML (20ML) VIAL IV ONE (06:58)
[2018-06-09] MEDS ORDERED: HYDROCODONE/APAP 5/325MG TABLET PO ONE (06:58)
[2018-06-09] MEDS ORDERED: ONDANSETRON HCL IV 4 MG/2 ML VIAL IVP ONE (06:58)
[2018-06-09] MEDS ORDERED: DEXAMETHASONE 4 MG/ML 1ML VIAL IVP ONE (06:58)
--- NOTE | 2018-06-09 14:10 | Operative Note ---
DATE OF SURGERY: 06/09/2018 Surgeon: Harry Pollock DO PREOPERATIVE DIAGNOSIS: Chronic right upper quadrant pain. POSTOPERATIVE DIAGNOSIS: Chronic right upper quadrant pain. OPERATION: Laparoscopic cholecystectomy. Indication: The patient is a 42-year-old male who presented to the office with right upper quadrant pain, nausea, postprandial issues. He had a workup which did show somewhat of a hyperdynamic gallbladder. We did discuss cholecystectomy versus medical management. He desired surgical intervention. Risks include bleeding, infection, ductal injury, possible conversion to open, postoperative bile leak. He understood this fully. PROCEDURE: Thereafter, consent was signed and questions answered. He was taken to the operating room and placed in a supine position. General anesthesia was administered per the department of anesthesia. The patient's abdomen was shaved of hair and prepped and draped in the usual sterile fashion. At this time, an adequate timeout was performed. His identity was confirmed. He did receive preoperative DVT prophylaxis. At this time, the supraumbilical region was anesthetized with a total of 2 mL of 0.25% Sensorcaine with epinephrine. A 2 cm supraumbilical incision was made. This was carried down to the anterior rectus fascia. This was incised. [place] clamps were placed on the fascial edges and brought up into the wound. Stay sutures of 0 Vicryl were placed. Posterior rectus sheath was identified and incised. The peritoneal cavity was entered bluntly. At this time, a 10 mm blunt Brielle port was placed. Adequate pneumoperitoneum was established. Under direct visualization, additional 5 mm epigastric and two 5 mm right subcostal ports were placed. The patient was then rotated into steep reverse Trendelenburg with rotation to left. The gallbladder was identified. Just the fundus was identified. The rest of it was covered with dense omentum. This was lifted anteriorly. The anterior adhesions were swept down bluntly. This did expose Tr pouch. Further cephalad and lateral retraction was applied. The hepatocystic triangle was thoroughly dissected out. There was no aberrant anatomy, no posterior ductal structures. The cystic duct and cystic artery were clearly identified. Each one was circumferentially dissected out in a 360-degree fashion. Each one was doubly clipped and cut in a standard fashion. Gallbladder was then taken off the liver bed with Son harmonic. This was then placed in an EndoCatch bag and brought out through the infraumbilical port. Right upper quadrant was rechecked and found to be hemostatic. No bleeding. No bile leak. No bowel injury noted. The patient was leveled out. The pneumoperitoneum was released. All ports were removed. The fascia was closed with 0 Vicryl in a [id number] fashion. The skin at all ports was closed with 4-0 Vicryl. The patient was taken to the recovery room in satisfactory condition. FINDINGS AT THE TIME OF SURGERY: Chronic cholecystitis. CC: MD KAREN Meek
== END 2018-06-09 10:55 | disposition home or self-care (01) ==
LOC: SUR 06:57
PROVIDERS: ATTEND Surgery
DX: R10.11 Right upper quadrant pain (principal); G47.30 Sleep apnea, unspecified; F41.0 Panic disorder [episodic paroxysmal anxiety]
CPT/HCPCS: 47562; 00790; J2405; J3490; C1776

== ENCOUNTER 2018-06-10 08:04 | Emergency (ER) | payer MEDICAID ==
[2018-06-10] MEDS ORDERED: 0.9 % SODIUM CHLORIDE 1,000 ML BAG IV ONE (08:29)
[2018-06-10 08:39] LABS: EOS % 0.2 % (0-6); GRAN % 77.1 % (47-80); HEMATOCRIT 44.3 % (42.0-52.0); HEMOGLOBIN 15.1 gm/dl (14.0-18.0); LYMPH % 14.1 % (16-45); MEAN CELL VOLUME 90.2 fl (81-97); MEAN CORPUSCULAR HEMOGLOBIN 30.8 pg (27-33); MEAN CORPUSCULAR HGB CONC 34.1 g/dl (32-36); MEAN PLATELET VOLUME 10.3 fl (7.4-10.4); MONO % 8.6 % (0-9); PLATELET COUNT 276 K/uL (130-400); RED BLOOD COUNT 4.91 M/uL (4.40-5.70); WHITE BLOOD COUNT W/O DIFF 12.2 K/uL (4.2-12.2)
[2018-06-10 08:50] LABS: BLOOD UREA NITROGEN 10 mg/dL (6-20); CREATININE 0.7 mg/dL (0.7-1.2); EST GLOMERULAR FILTRATION RATE > 60 mL/min
[2018-06-10 08:51] LABS: TOTAL PROTEIN 6.5 g/dL (6.6-8.7)
[2018-06-10 08:53] LABS: GLUCOSE,RANDOM 113 mg/dL (74-109)
[2018-06-10 08:56] LABS: ALB/GLOB RATIO 1.5 (1.1-1.8); ALBUMIN 3.9 g/dL (4.0-5.0); ALKALINE PHOSPHATASE 62 U/L (40-129); ALT/SGPT 40 U/L (<41); AST/SGOT 17 U/L (10.0-50.0)
[2018-06-10] MEDS ORDERED: ONDANSETRON HCL IV 4 MG/2 ML VIAL IVP ONE (09:37)
[2018-06-10 09:50] LABS: URINE APPEARANCE CLOUDY; URINE BILIRUBIN NEGATIVE (NEGATIVE); URINE BLOOD NEGATIVE (NEGATIVE); URINE COLOR ORANGE; URINE GLUCOSE (UA) NEGATIVE (NEGATIVE); URINE KETONE NEGATIVE (NEGATIVE); URINE LEUKOCYTE ESTERASE NEGATIVE (NEGATIVE); URINE NITRITE NEGATIVE (NEGATIVE); URINE PROTEIN NEGATIVE (NEGATIVE); URINE UROBILINOGEN 0.2 E.U./dL (0.20 - 1.00)
--- NOTE | 2018-06-10 10:03 | Emergency Department Record ---
History of Present Illness - General Chief Complaint: Dizziness Stated Complaint: GB SURG 06/10/DIZZY & SHAKY Time Seen by Provider: 06/10/18 08:23 Source: Patient Mode of Arrival: Ambulatory Limitations: No limitations - History of Present Illness Initial Comments: pt had his gallbladder out yesterday. now he feels dizzy and lightheaded. he has taken 8 norco and he does not usually take pain meds. MD Complaint: Dizziness, Lightheadedness Onset/Timin -: Days(s) Timing: Awoke with symptoms Description: Lightheadedness, Nausea History of Trauma: Yes (surgery) Severity: Mild Improves With: Nothing Worsens With: Nothing Associated Symptoms: Denies other symptoms - Gunjan Coma Scale Eye Response: (4) Open spontaneously Motor Response: (6) Obeys commands Verbal Response: (5) Oriented [place] Total: 15 - Symptoms of Stroke Symptoms of stroke: Dizziness - Related Data Home Medications Medication Instructions Recorded Confirmed Last Taken Hydrocodone/Acetaminophen [Filion 1 each PO QID PRN 06/10/18 06/10/18 06/10/18 5-325 Tablet] Previous Rx's Medication Instructions Recorded Albuterol Sulfate [Proair Hfa] 2 puff IH QID PRN #1 inhaler 04/12/18 Allergies Allergy/AdvReac Type Severity Reaction Status Date / Time diazepam [From Valium] Allergy Severe DIFFICULTY Verified 06/10/18 08:15 BREATHING Travel Screening - Travel/Exposure Within Last 30 Days Have you traveled within the last 30 days?: No - Travel/Exposure Within Last Year Have you traveled outside the [place] in the last year?: No - Additonal Travel Details Have you been exposed to anyone with a communicable illness?: No - Travel Symptoms Symptom Screening: None Review of Systems Reviewed: No additional complaints except as noted below Constitutional: Reports: As per HPI. Denies: Chills, Fever, Malaise, Night sweats, Weakness, Weight change Eyes: Reports: As per HPI. Denies: Eye discharge, Eye pain, Photophobia, Vision change ENT: Reports: As per HPI. Denies: Congestion, Dental pain, Ear pain, Epistaxis , Hearing loss, Throat pain Respiratory: Reports: As per HPI. Denies: Cough, Dyspnea, Hemoptysis, Stridor, Wheezes Cardiovascular: Reports: As per HPI. Denies: Arrhythmia, Chest pain, Dyspnea on exertion, Edema, Murmurs, Orthopnea, Palpitations, Paroxysmal nocturnal dyspnea, Rheumatic Fever, Syncope Endocrine: Reports: As per HPI. Denies: Fatigue, Heat or cold intolerance, Polydipsia, Polyuria Gastrointestinal: Reports: As per HPI, Abdominal pain. Denies: Constipation, Diarrhea, Hematemesis, Hematochezia, Melena, Nausea, Vomiting Genitourinary: Reports: As per HPI. Denies: Dysuria, Frequency, Hematuria, Incontinence, Retention, Testicular pain, Testicular mass, Urgency Musculoskeletal: Reports: As per HPI. Denies: Arthralgia, Back pain, Gout, Joint swelling, Myalgia, Neck pain Skin: Reports: As per HPI. Denies: Bruising, Change in color, Change in hair/ nails, Lesions, Pruritus, Rash Neurological: Reports: As per HPI. Denies: Abnormal gait, Confusion, Headache, Numbness, Paresthesias, Seizure, Tingling, Tremors, Vertigo, Weakness Psychiatric: Reports: As per HPI. Denies: Anxiety, Auditory hallucinations, Depression, Homicidal thoughts, Suicidal thoughts, Visual hallucinations Hematological/Lymphatic: Reports: As per HPI. Denies: Anemia, Blood Clots, Easy bleeding, Easy bruising, Swollen glands Past Medical History - SOCIAL HISTORY Smoking Status: Former smoker Alcohol Use: Occasional Drug Use: None - RESPIRATORY Hx Respiratory Disorders: Yes Hx of CPAP: Yes Comment:: seasonal allergies - CARDIOVASCULAR Hx Cardio Disorders: Yes Hx Abnormal EKG: Yes (RBBB) Hx Chest Pain: Yes Hx Palpitations: Yes - NEURO Hx Neuro Disorders: No - GI Hx GI Disorders: Yes Comment:: "gall bladder functional 7%" - Hx Genitourinary Disorders: No - ENDOCRINE Hx Endocrine Disorders: No - MUSCULOSKELETAL Hx Musculoskeletal Disorders: Yes Hx Back Injury: Yes - PSYCH Hx Psych Problems: Yes Hx Anxiety: Yes - HEMATOLOGY/ONCOLOGY Hx Hematology/Oncology Disorders: No Family Medical History Any Significant Family History?: Yes Family Hx Comment (NOT TO BE USED IN PLACE OF ITEMS BELOW): COPD WITH MOTHER AND 2 SISTERS Hx Resp Disorders: Mother Physical Exam - General General Appearance: Alert, Oriented x3, Cooperative, Mild distress - Head Head exam: Normal inspection - Eye Eye exam: Normal appearance, PERRL, EOMI Pupils: Normal accommodation - ENT ENT exam: Normal exam, Mucous membranes moist, Normal external ear exam, Normal orophraynx Ear exam: Normal external inspection. negative: External canal tenderness Nasal Exam: Normal inspection. negative: Discharge, Sinus tenderness Mouth exam: Normal external inspection, Tongue normal Teeth exam: Normal inspection. negative: Dental caries Throat exam: Normal inspection. negative: Tonsillar erythema, Tonsillar exudate - Neck Neck exam: Normal inspection, Full ROM. negative: Tenderness - Respiratory Respiratory exam: Normal lung sounds bilaterally. negative: Respiratory distress - Cardiovascular Cardiovascular Exam: Regular rate, Normal rhythm, Normal heart sounds - GI/Abdominal GI/Abdominal exam: Soft, Normal bowel sounds, Tenderness, Other (incisions have no erythema and no drainage) - Rectal Rectal exam: Deferred - exam: Deferred - Extremities Extremities exam: Normal inspection, Full ROM, Normal capillary refill. negative: Tenderness - Back Back exam: Reports: Normal inspection, Full ROM. Denies: Muscle spasm, Rash noted, Tenderness - Neurological Neurological exam: Alert, CN II-XII intact, Normal gait, Oriented X3 - Psychiatric Psychiatric exam: Normal affect, Normal mood - Skin Skin exam: Dry, Intact, Normal color, Warm Course Vital Signs 06/10/18 08:08 Temperature 97.7 F Pulse Rate 63 Respiratory 18 Rate Blood Pressure 142/90 Pulse Ox 98 - Reevaluation(s) Reevaluation #1: 06/10/18 10:19 pt feels much better Medical Decision Making - Lab Data Result diagrams: 06/10/18 08:22 06/10/18 08:22 Lab Results 06/10/18 06/10/18 Range/Units 08:22 08:22 WBC 12.2 (4.2-12.2) K/uL RBC 4.91 (4.40-5.70) M/uL Hgb 15.1 (14.0-18.0) gm/dl Hct 44.3 (42.0-52.0) % MCV 90.2 (81-97) fl MCH 30.8 (27-33) pg MCHC 34.1 (32-36) g/dl RDW 13.0 (11.5-14.5) % Plt Count 276 (130-400) K/uL MPV 10.3 (7.4-10.4) fl Gran % 77.1 (47-80) % Lymphocytes % 14.1 L (16-45) % Monocytes % 8.6 (0-9) % Eosinophils % 0.2 (0-6) % Basophils % 0.0 (0-6) % Sodium 138 (136-145) mmol/L Potassium 3.4 (3.4-4.5) mmol/L Chloride 101 (98-107) mmol/L Carbon Dioxide 22.0 (22-29) mmol/L Anion Gap 15.0 (7-16) BUN 10 (6-20) mg/dL Creatinine 0.7 (0.7-1.2) mg/dL Estimated GFR > 60 mL/min Random Glucose 113 H (74-109) mg/dL Calcium 8.5 L (8.6-10.0) mg/dL Total Bilirubin 0.60 (0.2-1.0) mg/dL AST 17 (10.0-50.0) U/L ALT 40 (<41) U/L Alkaline Phosphatase 62 (40-129) U/L Total Protein 6.5 L (6.6-8.7) g/dL Albumin 3.9 L (4.0-5.0) g/dL Globulin 2.6 (1.4-4.8) gm/dL Albumin/Globulin Ratio 1.5 (1.1-1.8) Disposition Disposition: Discharge Clinical Impression: Dizziness Disposition: Home, Self-Care Condition: (1) Good Instructions: Dizziness (ED) Additional Instructions: follow up with dr abdalla. return sooner if worse Forms: Patient Portal Access Quality - Quality Measures Quality Measures: N/A - Blood Pressure Screening Does Patient Have Any of the Following: No Blood Pressure Classification: Hypertensive Reading Systolic Measurement: 142 Diastolic Measurement: 90 Screening for High Blood Pressure: < First Hypertensive BP, F/U Documented > [ G8950] First Hypertensive Follow-up Interventions: Follow-up with rescreen GT 1 day and LT 4 weeks.
== END 2018-06-10 10:27 | disposition home or self-care (01) ==
LOC: ER 08:04
DX: R42 Dizziness and giddiness (principal); R11.0 Nausea; Z87.891 Personal history of nicotine dependence; Z90.49 Acquired absence of other specified parts of digestive tract
CPT/HCPCS: 80053; 81003; 85025; 96374; 99284; J2405; J7030

== ENCOUNTER 2018-08-03 07:30 | Emergency (ER) | payer MEDICAID ==
[2018-08-03] MEDS ORDERED: LORAZEPAM 2 MG/ML VIAL IV ONE (07:50)
--- NOTE | 2018-08-03 07:56 | Emergency Department Record ---
History of Present Illness - General Chief Complaint: Chest Pain Stated Complaint: chest/back tightness/shakey Time Seen by Provider: 08/03/18 07:43 Source: Patient Mode of Arrival: Ambulatory Limitations: No limitations - History of Present Illness Initial Comments: The patient is here due to having the onset of upper abdominal discomfort about 3 hours ago. He describes the pain as a discomfort and aching that is worse with breathing at times and bending. He denies any SOB, LV, sweating, or nausea. The patient also is having tingling to his fingertips. He has had these exact same symptoms many times before which were caused by anxiety. The patient also believes this episode is the same as the past issues with anxiety. He has no cardiac risk factors and has seen cardiology for this multiple times. He has had 3 stress tests for it with the last being almost a year ago and he has seen Dr. Thurman in the past. MD Complaint: Other Onset/Timin -: Hour(s) Pain Location: Epigastric Severity scale (1-10): 5 Quality: Aching Consistency: Constant Improves With: Rest Worsens With: Nothing Treatments Prior to Arrival: None - Related Data Previous Rx's Medication Instructions Recorded Albuterol Sulfate [Proair Hfa] 2 puff IH QID PRN #1 inhaler 04/12/18 Allergies Allergy/AdvReac Type Severity Reaction Status Date / Time diazepam [From Valium] Allergy Severe DIFFICULTY Verified 06/10/18 08:15 BREATHING Travel Screening - Travel/Exposure Within Last 30 Days Have you traveled within the last 30 days?: No - Travel/Exposure Within Last Year Have you traveled outside the [place] in the last year?: No - Additonal Travel Details Have you been exposed to anyone with a communicable illness?: No - Travel Symptoms Symptom Screening: None Review of Systems Constitutional: Denies: Chills, Fever Eyes: Denies: Eye discharge ENT: Denies: Congestion Respiratory: Denies: Cough, Dyspnea Cardiovascular: Denies: Arrhythmia Endocrine: Denies: Fatigue Past Medical History - SOCIAL HISTORY Smoking Status: Former smoker Alcohol Use: Occasional Drug Use: None - RESPIRATORY Hx Respiratory Disorders: Yes Hx of CPAP: Yes Comment:: seasonal allergies - CARDIOVASCULAR Hx Cardio Disorders: Yes Hx Abnormal EKG: Yes (RBBB) Hx Chest Pain: Yes Hx Palpitations: Yes - NEURO Hx Neuro Disorders: No - GI Hx GI Disorders: Yes Comment:: "gall bladder functional 7%" - Hx Genitourinary Disorders: No - ENDOCRINE Hx Endocrine Disorders: No - MUSCULOSKELETAL Hx Musculoskeletal Disorders: Yes Hx Back Injury: Yes - PSYCH Hx Psych Problems: Yes Hx Anxiety: Yes - HEMATOLOGY/ONCOLOGY Hx Hematology/Oncology Disorders: No Family Medical History Any Significant Family History?: No Family Hx Comment (NOT TO BE USED IN PLACE OF ITEMS BELOW): COPD WITH MOTHER AND 2 SISTERS Hx Resp Disorders: Mother Physical Exam - General General Appearance: Alert, Oriented x3, Cooperative, No acute distress - Head Head exam: Atraumatic, Normocephalic, Normal inspection - Eye Eye exam: Normal appearance, PERRL, EOMI - ENT Throat exam: Normal inspection. negative: Tonsillar erythema, Tonsillar exudate - Neck Neck exam: Normal inspection, Full ROM. negative: Tenderness - Respiratory Respiratory exam: Normal lung sounds bilaterally. negative: Respiratory distress - Cardiovascular Cardiovascular Exam: Regular rate, Normal rhythm, Normal heart sounds - GI/Abdominal GI/Abdominal exam: Soft, Normal bowel sounds. negative: Rebound, Tenderness - Extremities Extremities exam: Normal inspection, Full ROM, Normal capillary refill. negative: Calf tenderness, Pedal edema, Tenderness - Neurological Neurological exam: Alert. negative: Motor sensory deficit - Skin Skin exam: negative: Rash Course Vital Signs 08/03/18 07:33 Temperature 97.4 F L Pulse Rate 72 Respiratory 18 Rate Blood Pressure 145/84 Pulse Ox 99 - Reevaluation(s) Reevaluation #1: The patient is doing a lot better at this time. His discomfort has resolved Spontaneously and he has no CP, SOB, or LV. 08/03/18 08:30 08/03/18 09:25 Reevaluation #2: The patient is doing a lot better at this time. He is very comfortable and denies any symptoms. He definitely believes his anxiety caused his symptoms due to having this issue many times in the past. We will check a 3 hr Trop and discharge if neg. The patient did miss his last appointment with Dr. Thurman so we will place a consult for him. 08/03/18 09:25 Reevaluation #3: The patient is doing very well at this time. He denies any CP, SOB, LV, or pleuritic pain. His anxiety has resolved and he feels back to normal. I strongly doubt any cardiac or pulmonary etiology due to the fact he has had this exact same issue multiple times and it has always been his anxiety. I also do doubt the cause to be a PE due to the fact the patient is low risk by Wells criteria and clearly PERC neg. His vitals are stable and his RA biox is 99%. 08/03/18 11:24 Medical Decision Making - Data Complexity MDM Data: Labs Ordered and/or Reviewed, X-Ray Ordered and/or Reviewed, EKG Ordered and/or Reviewed - Lab Data Result diagrams: 08/03/18 08:00 08/03/18 08:00 - EKG Data -: EKG Interpreted by Me EKG: No Acute Changes, Unchanged From Previous - Radiology Data Radiology results: Report reviewed (CXR: Neg.) Disposition Disposition: Discharge Clinical Impression: Anxiety Disposition: Home, Self-Care Condition: (2) Stable Instructions: Generalized Anxiety Disorder (ED) Additional Instructions: Please continue your regular medicines and please see your family doctor for recheck next week. Also see Dr. Thurman in the [facility] when possible. Return to the ER for any worsening symptoms. Referrals: [facility] [Provider Group] Forms: Patient Portal Access Time of Disposition: 11:27 Quality - Quality Measures Quality Measures: N/A - Blood Pressure Screening View Details: Yes Does Patient Have Any of the Following: No Blood Pressure Classification: Pre-Hypertensive BP Reading Systolic Measurement: 145 Diastolic Measurement: 84 Screening for High Blood Pressure: < Pre-Hypertensive BP, F/U Documented > [ G8950] Pre-Hypertensive Follow-up Interventions: Referral to alternative/primary care provider.
[2018-08-03 08:03] LABS: BASO % 0.2 % (0-6); EOS % 4.6 % (0-6); GRAN % 60.7 % (47-80); HEMATOCRIT 45.6 % (42.0-52.0); HEMOGLOBIN 15.5 gm/dl (14.0-18.0); LYMPH % 25.5 % (16-45); MEAN CELL VOLUME 89.9 fl (81-97); MEAN CORPUSCULAR HEMOGLOBIN 30.6 pg (27-33); MEAN PLATELET VOLUME 9.8 fl (7.4-10.4); PLATELET COUNT 284 K/uL (130-400); RED BLOOD COUNT 5.07 M/uL (4.40-5.70); RED CELL DISTRIBUTION WIDTH 13.1 % (11.5-14.5); WHITE BLOOD COUNT W/O DIFF 8.2 K/uL (4.2-12.2)
[2018-08-03 08:16] LABS: BLOOD UREA NITROGEN 21 mg/dL (6-20); CREATININE 0.8 mg/dL (0.7-1.2); EST GLOMERULAR FILTRATION RATE > 60 mL/min
[2018-08-03 08:17] LABS: TOTAL PROTEIN 6.7 g/dL (6.6-8.7)
[2018-08-03 08:19] LABS: GLUCOSE,RANDOM 119 mg/dL (74-109)
[2018-08-03 08:21] LABS: ALB/GLOB RATIO 1.6 (1.1-1.8); ALBUMIN 4.1 g/dL (4.0-5.0); ALKALINE PHOSPHATASE 78 U/L (40-129); ALT/SGPT 38 U/L (<41); AST/SGOT 19 U/L (10.0-50.0); CREATINE PHOSPHOKINASE 63 U/L (39-308)
[2018-08-03 11:20] LABS: CKMB 1.6 ng/mL (<6.73)
--- NOTE | 2018-08-06 12:46 | RADIOLOGY REPORT ---
EXAM: CHEST HISTORY: PANIC ATTACKS. TECHNIQUE: Two views of the chest were obtained. Comparison: 02/18/18. FINDINGS: The heart is not enlarged and there is no mediastinal mass. No acute infiltrate or vascular congestion. IMPRESSION: NO ACUTE CARDIAC OR PULMONARY ABNORMALITY. JOB NUMBER: [id number] MTDD
== END 2018-08-03 11:37 | disposition home or self-care (01) ==
LOC: ER 07:30
DX: F41.9 Anxiety disorder, unspecified (principal); R07.89 Other chest pain; R10.13 Epigastric pain; Z87.891 Personal history of nicotine dependence
CPT/HCPCS: 71046; 80053; 82550; 82553; 84484; 85025; 93005; 93010; 99284

== ENCOUNTER 2018-08-17 22:28 | Emergency (ER) | payer MEDICAID ==
[2018-08-17] MEDS ORDERED: METHYLPREDNISOLONE PF 125MG/VIAL IM ONE (22:38)
--- NOTE | 2018-08-17 22:43 | Emergency Department Record ---
History of Present Illness - General Chief Complaint: Shortness of breath Stated Complaint: LV/THROAT SWELLING Time Seen by Provider: 08/17/18 22:29 Source: Patient Mode of Arrival: Ambulatory Limitations: No limitations - History of Present Illness Initial Comments: 42 yo male presents to ED for evaluation of throat swelling for the past 4 days. Patient reports a previous history of similar symptoms related to uvitis , was seen at [facility] 4 days ago and started on Augmentin and Flonase for his symptoms. Patient had requested Solumedrol IM for his symptoms that has improved his throat swelling symptoms previously, but was not administered a steroid at that time. Patient reports that he would like to be given an IM steroid injection for his symptoms. Onset/Timin -: Days(s) Severity: Moderate Quality: Aching Consistency: Constant Improves With: Nothing Worsens With: Nothing Associated Symptoms: Denies other symptoms Treatments Prior to Arrival: Other (Antibiotics, nasal steroid) - Related Data Home Oxygen Therapy: No Previous Rx's Medication Instructions Recorded Albuterol Sulfate [Proair Hfa] 2 puff IH QID PRN #1 inhaler 04/12/18 Allergies Allergy/AdvReac Type Severity Reaction Status Date / Time diazepam [From Valium] Allergy Severe DIFFICULTY Unverified 08/14/18 12:40 BREATHING Review of Systems Constitutional: Denies: Chills, Fever, Malaise, Night sweats Eyes: Denies: Eye discharge, Eye pain ENT: Reports: Throat pain. Denies: Congestion, Ear pain, Epistaxis Respiratory: Denies: Cough, Dyspnea Cardiovascular: Denies: Chest pain, Dyspnea on exertion Endocrine: Denies: Fatigue, Heat or cold intolerance Gastrointestinal: Denies: Abdominal pain, Nausea, Vomiting Genitourinary: Denies: Incontinence, Retention Musculoskeletal: Denies: Arthralgia, Back pain, Gout, Joint swelling Skin: Denies: Bruising, Change in color Neurological: Denies: Abnormal gait, Confusion, Headache, Seizure Psychiatric: Denies: Anxiety Hematological/Lymphatic: Denies: Anemia, Blood Clots Past Medical History - SOCIAL HISTORY Smoking Status: Former smoker Drug Use: None - RESPIRATORY Hx Respiratory Disorders: Yes Hx of CPAP: Yes Comment:: seasonal allergies - CARDIOVASCULAR Hx Cardio Disorders: Yes Hx Abnormal EKG: Yes (RBBB) Hx Chest Pain: Yes Hx Palpitations: Yes - NEURO Hx Neuro Disorders: No - GI Hx GI Disorders: Yes Comment:: "gall bladder functional 7%" - Hx Genitourinary Disorders: No - ENDOCRINE Hx Endocrine Disorders: No - MUSCULOSKELETAL Hx Musculoskeletal Disorders: Yes Hx Back Injury: Yes - PSYCH Hx Psych Problems: Yes Hx Anxiety: Yes - HEMATOLOGY/ONCOLOGY Hx Hematology/Oncology Disorders: No Family Medical History Family Hx Comment (NOT TO BE USED IN PLACE OF ITEMS BELOW): COPD WITH MOTHER AND 2 SISTERS Hx Resp Disorders: Mother Physical Exam - General General Appearance: Alert, Oriented x3, Cooperative, Mild distress Limitations: No limitations - Head Head exam: Atraumatic, Normocephalic, Normal inspection Head exam detail: negative: Abrasion, Contusion, Vieyra's sign, General tenderness, Hematoma, Laceration - Eye Eye exam: Normal appearance. negative: Conjunctival injection, Periorbital swelling, Periorbital tenderness, Scleral icterus - ENT Ear exam: negative: Auricular hematoma, Auricular trauma Nasal Exam: negative: Active bleeding, Discharge, Dried blood, Foreign body Mouth exam: negative: Drooling, Laceration, Muffled voice, Tongue elevation Throat exam: Tonsillar erythema, Tonsillomegaly. negative: R peritonsillar mass , L peritonsillar mass - Neck Neck exam: Normal inspection. negative: Meningismus, Tenderness - Respiratory Respiratory exam: Normal lung sounds bilaterally. negative: Rales, Respiratory distress, Rhonchi, Stridor - Cardiovascular Cardiovascular Exam: Regular rate, Normal rhythm, Normal heart sounds - GI/Abdominal GI/Abdominal exam: Soft. negative: Rebound, Rigid, Tenderness - Rectal Rectal exam: Deferred - exam: Deferred - Extremities Extremities exam: Normal inspection. negative: Calf tenderness, Pedal edema, Tenderness - Back Back exam: Denies: CVA tenderness (R), CVA tenderness (L) - Neurological Neurological exam: Alert, Normal gait, Oriented X3 - Psychiatric Psychiatric exam: Normal affect, Normal mood - Skin Skin exam: Normal color. negative: Abrasion Type of lesion: negative: abrasion Course Vital Signs 08/17/18 22:33 Temperature 97.9 F Pulse Rate [ 69 Pulse Ox Probe] Respiratory 16 Rate Blood Pressure 133/102 [Left Arm] Pulse Ox 97 - Reevaluation(s) Reevaluation #1: 08/17/18 23:19 Will administer Solumedrol IM. Patient is otherwise well appearing and stable for discharge at this time. Patient was instructed to continue his Augmentin and Flonase as previously prescribed. Disposition Disposition: Discharge Clinical Impression: Tonsillitis Disposition: Home, Self-Care Condition: (2) Stable Instructions: Tonsillitis (ED) Additional Instructions: Return to ED if your symptoms worsen or if you have any concerns. Continue augmentin/flonas as directed. Follow-up with your family doctor in 3-5 days as directed. Forms: Patient Portal Access Time of Disposition: 22:43 Quality - Quality Measures Quality Measures: N/A - Blood Pressure Screening Does Patient Have Any of the Following: No Blood Pressure Classification: Hypertensive Reading Systolic Measurement: 133 Diastolic Measurement: 102 Screening for High Blood Pressure: < First Hypertensive BP, F/U Documented > [ G8950] First Hypertensive Follow-up Interventions: Referral to alternative/primary care provider.
== END 2018-08-17 23:04 | disposition home or self-care (01) ==
LOC: ER 22:28
DX: J03.90 Acute tonsillitis, unspecified (principal); R06.02 Shortness of breath; Z87.891 Personal history of nicotine dependence
CPT/HCPCS: 96372; 99282; 99283; J2930

== ENCOUNTER 2018-11-30 07:37 | Emergency (ER) | payer MEDICAID ==
--- NOTE | 2018-11-30 07:56 | Emergency Department Record ---
History of Present Illness - General Chief Complaint: Palpitations Stated Complaint: HEART PALPITATIONS, PRESSURE IN HEAD Time Seen by Provider: 11/30/18 07:47 Source: Patient Mode of Arrival: Ambulatory Limitations: No limitations - History of Present Illness Initial Comments: The patient is here due to waking up 45 minutes ago and feeling like his heart was skipping beats and he was having palpitations. He also felt head pressure but had no CP, SOB, or sweating. The patient has a long hx of anxiety and has been to the ER multiple times for this. He did just have a heart catheterization [place] [facility] [place] ago that was normal. MD Complaint: Palpitations, "Skipped beats" Onset/Timin -: Minutes(s) - Related Data Home Medications Medication Instructions Recorded Confirmed Last Taken Aspirin Chewable 81 mg PO DAILY 11/30/18 11/30/18 Unknown Allergies Allergy/AdvReac Type Severity Reaction Status Date / Time diazepam [From Valium] Allergy Severe DIFFICULTY Unverified 10/29/18 10:28 BREATHING Travel Screening - Travel/Exposure Within Last 30 Days Have you traveled within the last 30 days?: No - Travel/Exposure Within Last Year Have you traveled outside the [place] in the last year?: No - Additonal Travel Details Have you been exposed to anyone with a communicable illness?: No - Travel Symptoms Symptom Screening: None Review of Systems Constitutional: Denies: Chills, Fever Eyes: Denies: Eye discharge ENT: Denies: Congestion Respiratory: Denies: Cough, Dyspnea Cardiovascular: Reports: Arrhythmia. Denies: Chest pain Endocrine: Denies: Fatigue Gastrointestinal: Denies: Nausea Genitourinary: Denies: Dysuria Musculoskeletal: Denies: Arthralgia Skin: Denies: Bruising Past Medical History - SOCIAL HISTORY Smoking Status: Former smoker Alcohol Use: Occasional Drug Use: None - RESPIRATORY Hx Respiratory Disorders: Yes Hx of CPAP: Yes Comment:: seasonal allergies - CARDIOVASCULAR Hx Cardio Disorders: Yes Hx Abnormal EKG: Yes (RBBB) Hx Chest Pain: Yes Hx Palpitations: Yes - NEURO Hx Neuro Disorders: No - GI Hx GI Disorders: Yes Comment:: "gall bladder functional 7%" - Hx Genitourinary Disorders: No - ENDOCRINE Hx Endocrine Disorders: No - MUSCULOSKELETAL Hx Musculoskeletal Disorders: Yes Hx Back Injury: Yes - PSYCH Hx Psych Problems: Yes Hx Anxiety: Yes - HEMATOLOGY/ONCOLOGY Hx Hematology/Oncology Disorders: No Family Medical History Any Significant Family History?: No Family Hx Comment (NOT TO BE USED IN PLACE OF ITEMS BELOW): COPD WITH MOTHER AND 2 SISTERS Hx Resp Disorders: Mother Physical Exam - General General Appearance: Alert, Oriented x3, Cooperative, No acute distress - Head Head exam: Atraumatic, Normocephalic, Normal inspection - Eye Eye exam: Normal appearance, PERRL, EOMI - Neck Neck exam: Normal inspection, Full ROM. negative: Tenderness - Respiratory Respiratory exam: Normal lung sounds bilaterally. negative: Respiratory distress - Cardiovascular Cardiovascular Exam: Regular rate, Normal rhythm, Normal heart sounds. negative : Diastolic murmur, Gallop, Irregular rhythm, Systolic murmur - GI/Abdominal GI/Abdominal exam: Soft, Normal bowel sounds. negative: Tenderness - Extremities Extremities exam: Normal inspection, Full ROM, Normal capillary refill. negative: Tenderness - Back Back exam: Reports: Normal inspection - Neurological Neurological exam: Alert, Normal gait. negative: Abnormal gait, Motor sensory deficit - Psychiatric Psychiatric exam: negative: Agitated Course Vital Signs 11/30/18 07:39 Temperature 97.5 F L Pulse Rate 64 Respiratory 18 Rate Blood Pressure 152/112 Pulse Ox 97 - Reevaluation(s) Reevaluation #1: The patient is feeling much better at this time. He no longer is having the palpitations and is much more relaxed. He feels ready for home. 11/30/18 08:39 Reevaluation #2: I did review the patient's heart catheterization from 09/30/18 and it was normal. 11/30/18 08:40 Medical Decision Making - Data Complexity MDM Data: Labs Ordered and/or Reviewed, EKG Ordered and/or Reviewed - Lab Data Result diagrams: 11/30/18 07:58 11/30/18 07:58 - EKG Data -: EKG Interpreted by Me EKG: No Acute Changes, Unchanged From Previous Disposition Disposition: Discharge Clinical Impression: Palpitations Disposition: Home, Self-Care Condition: (2) Stable Instructions: Heart Palpitations (ED) Additional Instructions: Please continue your regular medicines and please see your family doctor if needed for any problems later this week. Return to the ER for any worsening symptoms. Forms: Patient Portal Access Time of Disposition: 08:39 Quality - Quality Measures Quality Measures: N/A - Blood Pressure Screening View Details: Yes Does Patient Have Any of the Following: No Blood Pressure Classification: Hypertensive Reading Systolic Measurement: 152 Diastolic Measurement: 112 Screening for High Blood Pressure: < First Hypertensive BP, F/U Documented > [ G8950] First Hypertensive Follow-up Interventions: Referral to alternative/primary care provider.
[2018-11-30 08:05] LABS: BASO % 0.1 % (0-6); EOS % 4.4 % (0-6); GRAN % 57.3 % (47-80); HEMATOCRIT 45.8 % (42.0-52.0); HEMOGLOBIN 15.6 gm/dl (14.0-18.0); LYMPH % 30.8 % (16-45); MEAN CELL VOLUME 90.7 fl (81-97); MEAN CORPUSCULAR HEMOGLOBIN 30.9 pg (27-33); MEAN CORPUSCULAR HGB CONC 34.1 g/dl (32-36); MONO % 7.4 % (0-9); PLATELET COUNT 279 K/uL (130-400); RED BLOOD COUNT 5.05 M/uL (4.40-5.70); RED CELL DISTRIBUTION WIDTH 13.5 % (11.5-14.5)
[2018-11-30] MEDS ORDERED: LORAZEPAM 0.5 MG TABLET PO ONE (08:07)
[2018-11-30 08:17] LABS: BLOOD UREA NITROGEN 14 mg/dL (6-20); CREATININE 0.7 mg/dL (0.7-1.2); EST GLOMERULAR FILTRATION RATE > 60 mL/min
[2018-11-30 08:18] LABS: TOTAL PROTEIN 6.6 g/dL (6.6-8.7)
[2018-11-30 08:20] LABS: GLUCOSE,RANDOM 128 mg/dL (74-109)
[2018-11-30 08:23] LABS: ALB/GLOB RATIO 1.4 (1.1-1.8); ALBUMIN 3.9 g/dL (4.0-5.0); ALKALINE PHOSPHATASE 78 U/L (55-149); ALT/SGPT 48 U/L (<41); AST/SGOT 24 U/L (10.0-50.0)
== END 2018-11-30 08:47 | disposition home or self-care (01) ==
LOC: ER 07:37
DX: R00.2 Palpitations (principal); R51 Headache; Z87.891 Personal history of nicotine dependence
CPT/HCPCS: 80053; 85025; 93005; 93010; 99284

== ENCOUNTER 2019-03-11 04:52 | Emergency (ER) | payer MEDICAID ==
[2019-03-11 05:11] LABS: BASO % 0.2 % (0-6); EOS % 3.7 % (0-6); GRAN % 57.7 % (47-80); HEMATOCRIT 46.9 % (42.0-52.0); LYMPH % 31.1 % (16-45); MEAN CELL VOLUME 89.7 fl (81-97); MEAN CORPUSCULAR HEMOGLOBIN 30.6 pg (27-33); MEAN CORPUSCULAR HGB CONC 34.1 g/dl (32-36); MONO % 7.3 % (0-9); PLATELET COUNT 300 K/uL (130-400); RED BLOOD COUNT 5.23 M/uL (4.40-5.70); RED CELL DISTRIBUTION WIDTH 13.3 % (11.5-14.5); WHITE BLOOD COUNT W/O DIFF 8.3 K/uL (4.2-12.2)
--- NOTE | 2019-03-11 05:11 | Emergency Department Record ---
History of Present Illness - General Chief Complaint: Palpitations Stated Complaint: PALPITATIONS Time Seen by Provider: 03/11/19 04:58 Source: Patient Mode of Arrival: Ambulatory Limitations: No limitations - History of Present Illness Initial Comments: 43 yo male presents to ED for evaluation of "palpitations" intermittently for the past 6 hours. Patient reports numerous visits for similar symptoms related to anxiety, report recent heart cath 10/14 which was reported as normal. Patient deneis chest pain or discomfort, does reports diaphoresis. Patient denies calf pain or swelling, denies history of DVT/PE. MD Complaint: Palpitations, "Skipped beats" Onset/Timin -: Hour(s) Context: Occurred during rest Arrythmia History: Other Associated Symptoms: Chest pain, Shortness of breath, Other - Related Data Allergies Allergy/AdvReac Type Severity Reaction Status Date / Time diazepam [From Valium] Allergy Severe DIFFICULTY Unverified 02/24/19 10:51 BREATHING Travel Screening - Travel/Exposure Within Last 30 Days Have you traveled within the last 30 days?: No - Travel Symptoms Symptom Screening: None Review of Systems Constitutional: Denies: Chills, Fever, Malaise, Night sweats Eyes: Denies: Eye discharge, Eye pain ENT: Denies: Congestion, Ear pain, Epistaxis Respiratory: Denies: Cough, Dyspnea Cardiovascular: Reports: Palpitations. Denies: Chest pain, Dyspnea on exertion Endocrine: Denies: Fatigue, Heat or cold intolerance Gastrointestinal: Denies: Abdominal pain, Nausea, Vomiting Genitourinary: Denies: Incontinence, Retention Musculoskeletal: Denies: Arthralgia, Back pain Skin: Denies: Bruising, Change in color Neurological: Denies: Abnormal gait, Confusion, Headache, Seizure Psychiatric: Denies: Anxiety Hematological/Lymphatic: Denies: Anemia, Blood Clots Past Medical History - SOCIAL HISTORY Smoking Status: Former smoker Alcohol Use: Occasional Drug Use: None - RESPIRATORY Hx Respiratory Disorders: Yes Hx of CPAP: Yes Comment:: seasonal allergies - CARDIOVASCULAR Hx Cardio Disorders: Yes Hx Abnormal EKG: Yes (RBBB) Hx Cardiac Cath: Yes Hx Chest Pain: Yes Hx Palpitations: Yes - NEURO Hx Neuro Disorders: No - GI Hx GI Disorders: Yes - Hx Genitourinary Disorders: No - ENDOCRINE Hx Endocrine Disorders: No - MUSCULOSKELETAL Hx Musculoskeletal Disorders: Yes Hx Back Injury: Yes - PSYCH Hx Psych Problems: Yes Hx Anxiety: Yes - HEMATOLOGY/ONCOLOGY Hx Hematology/Oncology Disorders: No Family Medical History Any Significant Family History?: Yes Family Hx Comment (NOT TO BE USED IN PLACE OF ITEMS BELOW): COPD WITH MOTHER AND 2 SISTERS Hx Resp Disorders: Mother Physical Exam - General General Appearance: Alert, Oriented x3, Cooperative, Mild distress, Anxious Limitations: No limitations - Head Head exam: Atraumatic, Normocephalic, Normal inspection Head exam detail: negative: Abrasion, Contusion, Vieyra's sign, General tenderness, Hematoma, Laceration - Eye Eye exam: Normal appearance. negative: Conjunctival injection, Periorbital swelling, Periorbital tenderness, Scleral icterus - ENT Ear exam: negative: Auricular hematoma, Auricular trauma Nasal Exam: negative: Active bleeding, Discharge, Dried blood, Foreign body Mouth exam: negative: Drooling, Laceration, Muffled voice, Tongue elevation - Neck Neck exam: Normal inspection. negative: Meningismus, Tenderness - Respiratory Respiratory exam: Normal lung sounds bilaterally. negative: Rales, Respiratory distress, Rhonchi, Stridor - Cardiovascular Cardiovascular Exam: Regular rate, Normal rhythm, Normal heart sounds - GI/Abdominal GI/Abdominal exam: Soft. negative: Rebound, Rigid, Tenderness - Rectal Rectal exam: Deferred - exam: Deferred - Extremities Extremities exam: Normal inspection. negative: Pedal edema, Tenderness - Back Back exam: Denies: CVA tenderness (R), CVA tenderness (L) - Neurological Neurological exam: Alert, Normal gait, Oriented X3 - Psychiatric Psychiatric exam: Anxious - Skin Skin exam: Normal color. negative: Abrasion Type of lesion: negative: abrasion Course Vital Signs 03/11/19 03/11/19 04:54 04:55 Temperature 97.8 F Pulse Rate 62 Pulse Rate [ 63 Pulse Ox Probe] Respiratory 20 20 Rate Blood Pressure 158/100 Blood Pressure 158/100 [Right Arm] Pulse Ox 97 94 L - Reevaluation(s) Reevaluation #1: 03/11/19 05:09 EKG: NSR 61 Normal axis, RBBB No acute changes from 11/30/18 PERC clinical decision rule was applied, and the patient does not have any of the following: -Age > 50 years -Pulse > 100 -Oxygen Saturation < 94% -History of Hemoptysis -Unilateral leg swelling -History or PE/DVT -Recent surgery or Trauma -Oral contraceptive/Hormone use Reevaluation #2: 03/11/19 05:34 Laboratory studies were reviewed and are grossly unremarkable for an acute process. Reevaluation #3: 03/11/19 05:57 Patient has been monitored for >1hour, no arrhythmias noted while on cardiac mon itoring. Patient was updated on all results, reports that he is feeling better and appears stable for discharge at this time. Medical Decision Making - Lab Data Result diagrams: 03/11/19 05:00 03/11/19 05:00 Disposition Disposition: Discharge Clinical Impression: Palpitations Disposition: Home, Self-Care Condition: (2) Stable Instructions: Heart Palpitations (ED) Additional Instructions: Return to ED if your symptoms worsen or if you have any concerns. Follow-up with Dr. Thurman in 3-5 days as directed. Forms: Patient Portal Access Time of Disposition: 05:58 Quality - Quality Measures Quality Measures: N/A - Blood Pressure Screening Does Patient Have Any of the Following: No Blood Pressure Classification: Hypertensive Reading Systolic Measurement: 158 Diastolic Measurement: 100 Screening for High Blood Pressure: < First Hypertensive BP, F/U Documented > [G8950] First Hypertensive Follow-up Interventions: Referral to alternative/primary care provider.
[2019-03-11 05:20] LABS: BLOOD UREA NITROGEN 15 mg/dL (6-20); CREATININE 0.7 mg/dL (0.7-1.2); EST GLOMERULAR FILTRATION RATE > 60 mL/min
[2019-03-11 05:21] LABS: TOTAL PROTEIN 6.8 g/dL (6.6-8.7)
[2019-03-11 05:23] LABS: GLUCOSE,RANDOM 129 mg/dL (74-109)
[2019-03-11 05:26] LABS: ALB/GLOB RATIO 1.5 (1.1-1.8); ALBUMIN 4.1 g/dL (4.0-5.0); ALKALINE PHOSPHATASE 87 U/L (40-129); ALT/SGPT 41 U/L (<41); AST/SGOT 21 U/L (10.0-50.0)
== END 2019-03-11 06:09 | disposition home or self-care (01) ==
LOC: ER 04:52
DX: R00.2 Palpitations (principal); R06.02 Shortness of breath; Z87.891 Personal history of nicotine dependence
CPT/HCPCS: 80053; 84484; 85025; 93005; 93010; 99284

== ENCOUNTER 2019-05-04 01:55 | Emergency (ER) | payer MEDICAID ==
[2019-05-04] MEDS ORDERED: ORPHENADRINE CITRATE 60MG/2ML VIAL IM ONE (02:29)
[2019-05-04] MEDS ORDERED: KETOROLAC 30 MG/ML VIAL IM ONE (02:29)
--- NOTE | 2019-05-04 03:00 | Emergency Department Record ---
History of Present Illness - General Chief Complaint: Back Pain/Injury Stated Complaint: BACK PAIN Time Seen by Provider: 05/04/19 02:02 Source: Patient Mode of Arrival: Ambulatory Limitations: No limitations - History of Present Illness Initial Comments: pt [place] the pain is in the lower back more so on the right. movement makes it worse. Complaint: Back pain Onset/Timin -: Hour(s) Similar Symptoms Previously: Yes Place: Other Radiation: Right leg Quality: Dull Consistency: Constant Improves With: None Worsens With: Deep breaths/cough, Movement, Sitting upright, Supine, Walking Associated Symptoms: Denies other symptoms Treatments Prior to Arrival: Other Treatment Prior to Arrival Comment:: did not take anything/ used bengay - Related Data Previous Rx's Medication Instructions Recorded Cyclobenzaprine HCl [Flexeril] 10 mg PO TID #14 tablet 05/04/19 Ibuprofen [Motrin 600Mg] 600 mg PO Q6H #20 tablet 05/04/19 Allergies Allergy/AdvReac Type Severity Reaction Status Date / Time diazepam [From Valium] Allergy Severe DIFFICULTY Verified 05/04/19 02:03 BREATHING Travel Screening - Travel/Exposure Within Last 30 Days Have you traveled within the last 30 days?: No - Travel/Exposure Within Last Year Have you traveled outside the [place] in the last year?: No - Additonal Travel Details Have you been exposed to anyone with a communicable illness?: No - Travel Symptoms Symptom Screening: None Review of Systems Reviewed: No additional complaints except as noted below Constitutional: Reports: As per HPI. Denies: Chills, Fever, Malaise, Night sweats, Weakness, Weight change Eyes: Reports: As per HPI. Denies: Eye discharge, Eye pain, Photophobia, Vision change ENT: Reports: As per HPI. Denies: Congestion, Dental pain, Ear pain, Epistaxis, Hearing loss, Throat pain Respiratory: Reports: As per HPI. Denies: Cough, Dyspnea, Hemoptysis, Stridor, Wheezes Cardiovascular: Reports: As per HPI. Denies: Arrhythmia, Chest pain, Dyspnea on exertion, Edema, Murmurs, Orthopnea, Palpitations, Paroxysmal nocturnal dyspnea, Rheumatic Fever, Syncope Endocrine: Reports: As per HPI. Denies: Fatigue, Heat or cold intolerance, Polydipsia, Polyuria Gastrointestinal: Reports: As per HPI. Denies: Abdominal pain, Constipation, Diarrhea, Hematemesis, Hematochezia, Melena, Nausea, Vomiting Genitourinary: Reports: As per HPI. Denies: Dysuria, Frequency, Hematuria, Incontinence, Retention, Testicular pain, Testicular mass, Urgency Musculoskeletal: Reports: As per HPI. Denies: Arthralgia, Back pain, Gout, Joint swelling, Myalgia, Neck pain Skin: Reports: As per HPI. Denies: Bruising, Change in color, Change in hair/nails, Lesions, Pruritus, Rash Neurological: Reports: As per HPI. Denies: Abnormal gait, Confusion, Headache, Numbness, Paresthesias, Seizure, Tingling, Tremors, Vertigo, Weakness Psychiatric: Reports: As per HPI. Denies: Anxiety, Auditory hallucinations, Depression, Homicidal thoughts, Suicidal thoughts, Visual hallucinations Hematological/Lymphatic: Reports: As per HPI. Denies: Anemia, Blood Clots, Easy bleeding, Easy bruising, Swollen glands Past Medical History - SOCIAL HISTORY Smoking Status: Former smoker Alcohol Use: Rare Drug Use: None - RESPIRATORY Hx Respiratory Disorders: Yes Hx Sleep Apnea: Yes Hx of CPAP: Yes Comment:: seasonal allergies - CARDIOVASCULAR Hx Cardio Disorders: Yes Hx Abnormal EKG: Yes (RBBB) Hx Cardiac Cath: Yes Hx Chest Pain: Yes Hx Palpitations: Yes - NEURO Hx Neuro Disorders: No - GI Hx GI Disorders: Yes Comment:: "gall bladder functional 7%" - Hx Genitourinary Disorders: No - ENDOCRINE Hx Endocrine Disorders: No - MUSCULOSKELETAL Hx Musculoskeletal Disorders: Yes Hx Back Injury: Yes - PSYCH Hx Psych Problems: Yes Hx Anxiety: Yes - HEMATOLOGY/ONCOLOGY Hx Hematology/Oncology Disorders: No Family Medical History Any Significant Family History?: Yes Family Hx Comment (NOT TO BE USED IN PLACE OF ITEMS BELOW): COPD WITH MOTHER AND 2 SISTERS Hx Resp Disorders: Mother Physical Exam - General General Appearance: Alert, Oriented x3, Cooperative, Mild distress - Head Head exam: Normal inspection - Eye Eye exam: Normal appearance, PERRL, EOMI Pupils: Normal accommodation - ENT ENT exam: Normal exam, Mucous membranes moist, Normal external ear exam, Normal orophraynx Ear exam: Normal external inspection. negative: External canal tenderness Nasal Exam: Normal inspection. negative: Discharge, Sinus tenderness Mouth exam: Normal external inspection, Tongue normal Teeth exam: Normal inspection. negative: Dental caries Throat exam: Normal inspection. negative: Tonsillar erythema, Tonsillar exudate - Neck Neck exam: Normal inspection, Full ROM. negative: Tenderness - Respiratory Respiratory exam: Normal lung sounds bilaterally. negative: Respiratory distress - Cardiovascular Cardiovascular Exam: Regular rate, Normal rhythm, Normal heart sounds - GI/Abdominal GI/Abdominal exam: Soft, Normal bowel sounds. negative: Tenderness - Rectal Rectal exam: Deferred - exam: Deferred - Extremities Extremities exam: Normal inspection, Full ROM, Normal capillary refill. negative: Tenderness - Back Back exam: Reports: Full ROM, Muscle spasm, Tenderness. Denies: Rash noted - Neurological Neurological exam: Alert, CN II-XII intact, Normal gait, Oriented X3 - Psychiatric Psychiatric exam: Normal affect, Normal mood - Skin Skin exam: Dry, Intact, Normal color, Warm Course Vital Signs 05/04/19 05/04/19 02:00 02:03 Temperature 98.8 F 98.8 F Pulse Rate [ 81 Pulse Ox Probe] Respiratory 20 20 Rate Blood Pressure 149/100 [Left Arm] Pulse Ox 96 96 Disposition Disposition: Discharge Clinical Impression: Lumbar strain Qualifiers: Encounter type: initial encounter Qualified Code(s): S39.012A - Strain of muscle, fascia and tendon of lower back, initial encounter Disposition: Home, Self-Care Condition: (1) Good Instructions: Low Back Strain (ED) Additional Instructions: follow up with family doctor. return sooner if worse. ice and moist heat. Prescriptions: Cyclobenzaprine HCl [Flexeril] 10 mg PO TID #14 tablet Ibuprofen [Motrin 600Mg] 600 mg PO Q6H #20 tablet Quality - Quality Measures Quality Measures: N/A - Blood Pressure Screening Does Patient Have Any of the Following: No Blood Pressure Classification: Hypertensive Reading Systolic Measurement: 149 Diastolic Measurement: 100 Screening for High Blood Pressure: < First Hypertensive BP, F/U Documented > [G8950] First Hypertensive Follow-up Interventions: Follow-up with rescreen GT 1 day and LT 4 weeks.
== END 2019-05-04 03:16 | disposition home or self-care (01) ==
LOC: ER 01:55
DX: S39.012A Strain of muscle, fascia and tendon of lower back, initial encounter (principal); X50.9XXA Other and unspecified overexertion or strenuous movements or postures, initial encounter; Y93.E9 Activity, other interior property and clothing maintenance; Z87.891 Personal history of nicotine dependence
CPT/HCPCS: 96372; 99283; J1885; J2360